=== PATIENT | female | born 1945 | race African-American/Black ===

== ENCOUNTER 2016-07-06 11:54 | Emergency (ER) | payer MEDICARE, OTHER ==
[2016-07-06] MEDS ORDERED: ONDANSETRON 4 MG TAB.RAPDIS PO ONE (12:27)
[2016-07-06] MEDS ORDERED: OXYCODONE-ACETAMINOPHEN 5-325 MG TABLET PO ONE (12:27)
--- NOTE | 2016-07-06 12:27 | ER Document Report ---
ED General - General Time seen by provider: 12:20 Mode of Arrival: Medic Information source: Patient - HPI Onset: This morning - see HPI note <PHAN KUNZ - Last Filed: 07/06/16 12:27> <CATHY IRIZARRY - Last Filed: 07/06/16 15:15> - General Chief Complaint: Knee Injury Stated Complaint: RIGHT KNEE PAIN Notes: Patient is a 71 year old female presenting to the emergency department for a fall. Patient states her knees locked up on her and she fell. Patient complains of some pain to her right knee. Patient was seen at [facility] in 04/2011 for injuring this knee as well. Patient states she was going to get her cane from across the room when this occurred. Patient states that she felt achy this morning. Patient 's PCP is Dr. Maldonado. Patient is oxygen dependent and is on 3 L. Patient states she uses inhalers at home. Patient also has a history of hypertension. ( PHAN KUNZ) - Related Data Allergies/Adverse Reactions: Penicillins Allergy (Verified 05/15/11 22:23) Shellfish * [Shellfish] Allergy (Verified 05/15/11 22:23) Past Medical History - General Information source: Patient - Social History Smoking Status: Unknown if Ever Smoked Family History: None - Past Medical History Cardiac Medical History: Reports: Hx Hypertension Pulmonary Medical History: Reports: Hx Bronchitis, Hx COPD, Hx Pneumonia - Immunizations Hx Diphtheria, Pertussis, Tetanus Vaccination: No <PHAN KUNZ - Last Filed: 07/06/16 12:27> Review of Systems - Review of Systems Constitutional: No symptoms reported EENT: No symptoms reported Cardiovascular: No symptoms reported Respiratory: No symptoms reported Gastrointestinal: No symptoms reported Genitourinary: No symptoms reported Female Genitourinary: No symptoms reported Musculoskeletal: See HPI Skin: No symptoms reported Hematologic/Lymphatic: No symptoms reported Neurological/Psychological: No symptoms reported -: Yes All other systems reviewed and negative <PHAN KUNZ - Last Filed: 07/06/16 12:27> Physical Exam - General General appearance: Appears well, Alert In distress: Mild - HEENT Head: Normocephalic, Atraumatic Eyes: Normal Pupils: PERRL Mucous membranes: Moist - Respiratory Respiratory status: No respiratory distress - patient is on 3 L of 02 Chest status: Nontender Breath sounds: Normal Chest palpation: Normal - Cardiovascular Rhythm: Regular Heart sounds: Normal auscultation Murmur: No - Abdominal Inspection: Normal Distension: No distension Bowel sounds: Normal Tenderness: Nontender Organomegaly: No organomegaly - Back Back: Normal, Tender - tenderness to palpation over the iliac crest spinal musculature - Extremities General upper extremity: Normal inspection, Normal ROM, Normal strength Knee: Tender - tenderness to palpation of the right knee in the lateral joint; when stressing the medial joint there is pain to the lateral joint; when stressing the lateral joint there is not much pain to the lateral joint, Other - arthritic changes in the knees bilaterally - Neurological Neuro grossly intact: Yes Cognition: Normal Orientation: AAOx4 [place] Coma Scale Eye Opening: Spontaneous [place] Coma Scale Verbal: Oriented [place] Coma Scale Motor: Obeys Commands [place] Coma Scale Total: 15 Speech: Normal - Psychological Associated symptoms: Normal affect, Normal mood - Skin Skin Temperature: Warm Skin Moisture: Dry <PHAN KUNZ - Last Filed: 07/06/16 12:27> Course - Diagnostic Test Radiology reviewed: Image reviewed, Reports reviewed - X-rays of the right knee , left hip and lumbar spine do not show fractures but do show osteoarthritic changes. <CATHY IRIZARRY - Last Filed: 07/06/16 15:15> - Vital Signs Vital signs: Temp Pulse Resp BP Pulse Ox 97.9 F 84 18 117/64 94 07/06/16 14:03 07/06/16 14:03 07/06/16 14:03 07/06/16 14:03 07/06/16 14:03 Discharge <PHAN KUNZ - Last Filed: 07/06/16 12:27> <CATHY IRIZARRY - Last Filed: 07/06/16 15:15> - Discharge Clinical Impression: Sprain of collateral ligament of right knee Qualifiers: Encounter type: initial encounter Qualified Code(s): S83.401A - Sprain of unspecified collateral ligament of right knee, initial encounter Osteoarthritis Qualifiers: Osteoarthritis location: knee Osteoarthritis type: primary Laterality: bilateral Qualified Code(s): M17.0 - Bilateral primary osteoarthritis of knee Condition: Stable Disposition: HOME, SELF-CARE Prescriptions: Hydrocodone/Acetaminophen [Hydrocodon-Acetaminophen 5-325] 1 each PO Q4 PRN #15 tablet PRN Reason: For Pain Leg Brace [Knee Support] 1 each MC DAILY #1 each Referrals: LISA MALDONADO MD [Primary Care Provider] - Follow up as needed Scribe Documentation - Scribe Written by Scribe:: Phan Kunz 07/06/16 12:35 acting as scribe for :: Vito <PHAN KUNZ - Last Filed: 07/06/16 12:27>
[2016-07-06 15:40] VITALS: BP 115/62
== END 2016-07-06 15:10 | disposition home or self-care (01) ==
LOC: ER 11:54
DX: S83.401A Sprain of unspecified collateral ligament of right knee, initial encounter (principal); W19.XXXA Unspecified fall, initial encounter; Y93.89 Activity, other specified; M17.0 Bilateral primary osteoarthritis of knee; M47.9 Spondylosis, unspecified; M25.561 Pain in right knee; I10 Essential (primary) hypertension; J44.9 Chronic obstructive pulmonary disease, unspecified; Z99.81 Dependence on supplemental oxygen; Z79.899 Other long term (current) drug therapy; Z88.0 Allergy status to penicillin; Z91.013 Allergy to seafood
CPT/HCPCS: 99283; 73502; 73562; 72110; L1830; A9270 ×2; S0119

== ENCOUNTER → 2016-08-15 | Outpatient (CLI) | payer MEDICARE, OTHER ==
[2016-08-15 11:43] LABS: ABSOLUTE BASOPHILS # (AUTO) 0.1 10^3/uL (0.0-0.2); ABSOLUTE LYMPHOCYTES (AUTO) 1.2 10^3/uL (0.5-4.7); ABSOLUTE MONOCYTES (AUTO) 0.4 10^3/uL (0.1-1.4); ABSOLUTE NEUT (AUTO) 3.9 10^3/uL (1.7-8.2); BASOPHILS % (AUTO) 0.9 % (0-2); EOSINOPHILS % (AUTO) 0.6 % (0-6); HEMATOCRIT 40.3 % (36.0-47.0); HEMOGLOBIN 12.9 g/dL (12.0-15.5); HGB HCT DIFFERENCE -1.6; LYMPHOCYTES % (AUTO) 20.7 % (13-45); MEAN CORPUSCULAR HGB CONC 31.9 g/dL (32.0-36.0); MEAN CORPUSCULAR VOLUME 88 fl (80-97); MONOCYTES % (AUTO) 7.5 % (3-13); RED CELL DISTRIBUTION WIDTH 14.7 % (11.5-14.0); SEGMENTED NEUTROPHILS % (AUTO) 70.3 % (42-78); WHITE BLOOD COUNT 5.6 10^3/uL (4.0-10.5)
[2016-08-15 11:54] LABS: APPEARANCE,URINE CLEAR; BILIRUBIN,URINE NEGATIVE (NEGATIVE); GLUCOSE, URINE NEGATIVE (NEGATIVE); KETONES,URINE NEGATIVE (NEGATIVE); LEUKOCYTE ESTERASE,URINE NEGATIVE (NEGATIVE); NITRITE,URINE NEGATIVE (NEGATIVE); PROTEIN,URINE NEGATIVE (NEGATIVE); UROBILINOGEN,URINE NEGATIVE mg/dL (<2.0)
[2016-08-15 12:06] LABS: ANION GAP 11 (5-19); BLOOD UREA NITROGEN 15 mg/dL (7-20); CALCIUM 9.2 mg/dL (8.4-10.2); CARBON DIOXIDE 32 mmol/L (22-30); CHLORIDE 101 mmol/L (98-107); CREATININE RESULT 0.63 mg/dL (0.52-1.25); GLUCOSE 91 mg/dL (75-110); POTASSIUM 4.5 mmol/L (3.6-5.0)
--- NOTE | 2016-08-15 21:35 | EKG REPORT ---
SEVERITY:- NORMAL ECG - SINUS RHYTHM : Confirmed by: Ashley Saldana 15-Aug-2016 21:33:45
== END ==
LOC: OD 10:12
PROVIDERS: ATTEND Orthopaedic Surgery
DX: Z01.89 Encounter for other specified special examinations (principal); M17.11 Unilateral primary osteoarthritis, right knee
CPT/HCPCS: 36415; 71020; 80048; 81001; 85025; 93005; 93010

== ENCOUNTER 2016-09-12 09:00 | Outpatient (CLI) | payer MEDICARE, OTHER, BC ==
[~2016-09-12 09:00] MED LIST: BUPIVACAINE INJ/PF LIPOSOME/PF 266 MG/20 ML SDV INFIL PRN; CLINDAMYCIN 600 MG/D5W RTU 600 MG/50 ML RTUPB IV PRN; IBUPROFEN 800 MG in NORMAL SALINE 250 ML IV PRN; LANSOPRAZOLE 15 MG TAB.RAP.DR PO PRN; OXYCODONE HCL SR 10 MG TABLET PO PRN; RINGERS SOLUTION,LACTATED 1,000 ML IV PRN; SCOPOLAMINE HYDROBROMIDE 1.5 MG PATCH.TD72 TD PRN; THROMBIN (BOVINE) 5000 UNIT EPITAXIS KIT ONE; THROMBIN (BOVINE) TOPICAL 20000 UNIT VIAL ONE; VANCOMYCIN HCL 1,000 MG in DEXTROSE 5%-WATER 250 ML IV PRN
[2016-09-12] MEDS ORDERED: BUPIVACAINE INJ/PF LIPOSOME/PF 266 MG/20 ML SDV ONE (09:13)
[2016-09-12] MEDS ORDERED: MIDAZOLAM 2 MG/2 ML INJ ONE (09:17)
[2016-09-12] MEDS ORDERED: DEXMEDETOMIDINE INJ 80 MCG/20 ML VIAL IV ONE (09:18)
[2016-09-12] MEDS ORDERED: PROPOFOL INJ 200 MG/20 ML VIAL IV ONE (09:18)
[2016-09-12] MEDS ORDERED: TRANEXAMIC ACID INJ/PF 1,000 MG/10 ML SDV IV ONE (09:18)
[2016-09-12 10:59] VITALS: BP 122/82
== END 2016-09-12 09:01 | disposition home or self-care (01) ==
LOC: UNDOADMIN 09:00 → INOR 09:00 → OROUT 09:00 → UNDODISIN 09:00 → OROUT 09:01 → EDSTATUS 09-26 12:45
PROVIDERS: ATTEND Orthopaedic Surgery
DX: M17.11 Unilateral primary osteoarthritis, right knee (principal)
CPT/HCPCS: A9270 ×2; J7060; J3370; C9290; J1741; J2250; J2704; J3490; J7050

== ENCOUNTER → 2016-09-27 | Outpatient (CLI) | payer MEDICARE, OTHER ==
[2016-09-27 10:12] LABS: HEMATOCRIT 40.8 % (36.0-47.0); HEMOGLOBIN 12.5 g/dL (12.0-15.5); HGB HCT DIFFERENCE -3.3; MEAN CORPUSCULAR HEMOGLOBIN 27.2 pg (27.0-33.4); MEAN CORPUSCULAR HGB CONC 30.7 g/dL (32.0-36.0); MEAN CORPUSCULAR VOLUME 89 fl (80-97); RED BLOOD COUNT 4.61 10^6/uL (3.72-5.28); RED CELL DISTRIBUTION WIDTH 14.9 % (11.5-14.0); WHITE BLOOD COUNT 6.7 10^3/uL (4.0-10.5)
[2016-09-27 10:13] LABS: APPEARANCE,URINE CLEAR; BILIRUBIN,URINE NEGATIVE (NEGATIVE); GLUCOSE, URINE NEGATIVE (NEGATIVE); KETONES,URINE 20 mg/dL (NEGATIVE); LEUKOCYTE ESTERASE,URINE NEGATIVE (NEGATIVE); NITRITE,URINE NEGATIVE (NEGATIVE); PROTEIN,URINE NEGATIVE (NEGATIVE); URINE SPECIFIC GRAVITY 1.017; UROBILINOGEN,URINE NEGATIVE mg/dL (<2.0)
[2016-09-27 10:35] LABS: ANION GAP 11 (5-19); BLOOD UREA NITROGEN 13 mg/dL (7-20); CALCIUM 9.3 mg/dL (8.4-10.2); CARBON DIOXIDE 32 mmol/L (22-30); CHLORIDE 101 mmol/L (98-107); CREATININE RESULT 0.53 mg/dL (0.52-1.25); GLUCOSE 84 mg/dL (75-110); POTASSIUM 4.2 mmol/L (3.6-5.0); SODIUM 144.3 mmol/L (137-145)
== END ==
LOC: OD 09:40 → EDSTATUS 10-05 10:30
PROVIDERS: ATTEND Orthopaedic Surgery
DX: Z01.810 Encounter for preprocedural cardiovascular examination (principal); Z01.812 Encounter for preprocedural laboratory examination; Z01.818 Encounter for other preprocedural examination
CPT/HCPCS: 36415; 80048; 81001; 85027

== ENCOUNTER 2016-10-04 11:42 | Inpatient (IN) | payer MEDICARE, OTHER ==
--- NOTE | 2016-10-04 11:48 | ER Document Report ---
ED General - General Stated Complaint: TROUBLE BREATHING Mode of Arrival: Medic Information source: Patient Notes: 71-year-old presents with hx of copd with complaints of productive cough with sob. pt denies any fevers, found satting 71% on RA. pt given solumendrol and duo nebs TRAVEL OUTSIDE OF THE [place] IN LAST 30 DAYS: No - HPI Onset: Last week Onset/Duration: Sudden, Persistent, Worse Quality of pain: No pain Severity: Moderate Pain Level: Denies Associated symptoms: Productive cough, Shortness of breath Exacerbated by: Walking Relieved by: Denies Similar symptoms previously: No Recently seen / treated by doctor: No - Related Data Allergies/Adverse Reactions: Penicillins Allergy (Verified 08/30/16 12:17) Swelling Shellfish * [Shellfish] Allergy (Verified 08/30/16 12:17) Passed out, Unsure Home Medications: Current Home Medications Albuterol Sulfate [Proair HFA] 2 puff IH Q4 PRN 10/04/16 [History] Amlodipine Besylate/Benazepril [Amlodipine-Benazepril 10-20 mg] 1 cap PO DAILY 10/04/16 [History] Aspirin [Aspirin EC] 81 mg PO DAILY 10/04/16 [History] Past Medical History - Social History Smoking Status: Never Smoker Cigarette use (# per day): No Chew tobacco use (# tins/day): No Smoking Education Provided: No Family History: Reviewed & Not Pertinent - Past Medical History Cardiac Medical History: Reports: Hx Hypertension Denies: Hx Atrial Fibrillation, Hx Congestive Heart Failure, Hx Coronary Artery Disease, Hx Heart Attack, Hx Hypercholesterolemia, Hx Peripheral Vascular Disease, Hx Pulmonary Embolism, Hx Heart Murmur Pulmonary Medical History: Reports: Hx Bronchitis, Hx COPD, Hx Pneumonia Denies: Hx Asthma, Hx Respiratory Failure, Hx Sleep Apnea, Hx Tuberculosis Renal/ Medical History: Denies: Hx Ovarian Cysts, Hx Pelvic Inflammatory Disease Malignancy Medical History: Denies: Hx Breast Cancer, Hx Cervical Cancer, Hx Lung Cancer, Hx Ovarian Cancer Musculoskeltal Medical History: Reports Hx Arthritis, Denies Hx Fibromyalgia, Denies Hx Muscular Dystrophy Traumatic Medical History: Denies: Hx Fractures Past Surgical History: Reports: Hx Tonsillectomy. Denies: Hx Appendectomy, Hx Bowel Surgery, Hx Section, Hx Cholecystectomy, Hx Coronary Artery Bypass Graft, Hx Gastric Bypass Surgery, Hx Herniorrhaphy, Hx Hysterectomy, Hx Mastectomy, Hx Tubal Ligation - Immunizations Hx Diphtheria, Pertussis, Tetanus Vaccination: No Hx Pneumococcal Vaccination: 07/23/08 Review of Systems - Review of Systems Notes: REVIEW OF SYSTEMS: CONSTITUTIONAL : Denies fever, chills, or sweats. Denies recent illness. EENT: Denies eye, ear, throat, or mouth pain or symptoms. Denies nasal or sinus congestion or discharge. Denies throat, tongue, or mouth swelling or difficulty swallowing. CARDIOVASCULAR: Denies chest pain. Denies palpitations or racing or irregular heart beat. Denies ankle edema. RESPIRATORY: admits to sob productive sputum GASTROINTESTINAL: Denies abdominal pain or distention. Denies nausea, vomiting , or diarrhea. Denies blood in vomitus, stools, or per rectum. Denies black, tarry stools. Denies constipation. GENITOURINARY: Denies difficulty urinating, painful urination, burning, frequency, blood in urine, or discharge. FEMALE GENITOURINARY: Denies vaginal bleeding, heavy or abnormal periods, irregular periods. Denies vaginal discharge or odor. MUSCULOSKELETAL: Denies back or neck pain or stiffness. Denies joint pain or swelling. SKIN: Denies rash, lesions or sores. HEMATOLOGIC : Denies easy bruising or bleeding. LYMPHATIC: Denies swollen, enlarged glands. NEUROLOGICAL: Denies confusion or altered mental status. Denies passing out or loss of consciousness. Denies dizziness or lightheadedness. Denies headache. Denies weakness or paralysis or loss of use of either side. Denies problems with gait or speech. Denies sensory loss, numbness, or tingling. Denies seizures. PSYCHIATRIC: Denies anxiety or stress. Denies depression, suicidal ideation, or homicidal ideation. PHYSICAL EXAMINATION: GENERAL: Well-appearing, well-nourished and in moderate acute distress. HEAD: Atraumatic, normocephalic. EYES: Pupils equal round and reactive to light, extraocular movements intact, conjunctiva are normal. ENT: Nares patent, oropharynx clear without exudates. Moist mucous membranes. NECK: Normal range of motion, supple without lymphadenopathy LUNGS: coarse wheezing all throughout HEART: tachycardic ABDOMEN: Soft, nontender, nondistended abdomen. No guarding, no rebound. No masses appreciated. Female : deferred Musculoskeletal: Normal range of motion, no pitting or edema. No cyanosis. NEUROLOGICAL: Cranial nerves grossly intact. Normal speech, normal gait. Normal sensory, motor exams PSYCH: Normal mood, normal affect. SKIN: Warm, Dry, normal turgor, no rashes or lesions noted. ALL OTHER SYSTEMS REVIEWED AND NEGATIVE. Dictation was performed using [employer] voice recognition software Physical Exam - Vital signs Vitals: Pulse Ox 91 L 10/04/16 11:48 Course - Re-evaluation Re-evalutation: 10/04/16 15:52 Patient on arrival is noted to be quite hypoxic even nasal cannula, she was switched to BiPAP and appears to be doing much better, VBG is noted to show hypercapnia chest x-rays consistent with COPD with an infiltrate. Patient admitted for critical care - Vital Signs Vital signs: Temp Pulse Resp BP Pulse Ox 21 H 126/83 H 100 10/04/16 15:01 10/04/16 15:01 10/04/16 15:01 - Laboratory Result Diagrams: 10/04/16 12:10 10/04/16 12:10 Laboratory results interpreted by me: 10/04/16 10/04/16 10/04/16 12:10 12:10 12:10 Hgb 11.8 L MCHC 30.6 L RDW 15.3 H VBG pCO2 VBG HCO3 Sodium 148.2 H Carbon Dioxide 34 H AST 221 H ALT 220 H NT-Pro-B Natriuret Pep 1280 H Albumin 3.4 L Urine Ketones 10/04/16 10/04/16 12:10 12:40 Hgb MCHC RDW VBG pCO2 71.5 H* VBG HCO3 35.1 H Sodium Carbon Dioxide AST ALT NT-Pro-B Natriuret Pep Albumin Urine Ketones TRACE H - Diagnostic Test Radiology reviewed: Image reviewed, Reports reviewed - EKG Interpretation by Me EKG shows normal: Sinus rhythm, [place], Intervals, QRS Complexes Critical Care Note - Critical Care Note Total time excluding time spent on procedures (mins): 31 Comments: minutes of critical care time spent in direct contact evaluating and reevaluating the patient, treating symptoms, reviewing labs and studies and speaking with family and consultants excluding any procedures Discharge - Discharge Clinical Impression: Hypoxemia, Hypercapnia Pneumonia Qualifiers: Pneumonia type: due to unspecified organism Laterality: right Lung location: upper lobe of lung Qualified Code(s): J18.1 - Lobar pneumonia, unspecified organism Admitting Provider: Hospitalist Unit Admitted: [facility]
[2016-10-04 12:32] LABS: ABSOLUTE BASOPHILS # (AUTO) 0.1 10^3/uL (0.0-0.2); ABSOLUTE LYMPHOCYTES (AUTO) 1.4 10^3/uL (0.5-4.7); ABSOLUTE MONOCYTES (AUTO) 0.7 10^3/uL (0.1-1.4); ABSOLUTE NEUT (AUTO) 6.5 10^3/uL (1.7-8.2); BASOPHILS % (AUTO) 0.6 % (0-2); EOSINOPHILS % (AUTO) 0.2 % (0-6); HEMATOCRIT 38.4 % (36.0-47.0); HEMOGLOBIN 11.8 g/dL (12.0-15.5); MEAN CORPUSCULAR HEMOGLOBIN 27.2 pg (27.0-33.4); MEAN CORPUSCULAR HGB CONC 30.6 g/dL (32.0-36.0); MEAN CORPUSCULAR VOLUME 89 fl (80-97); MONOCYTES % (AUTO) 7.9 % (3-13); RED BLOOD COUNT 4.32 10^6/uL (3.72-5.28); RED CELL DISTRIBUTION WIDTH 15.3 % (11.5-14.0); SEGMENTED NEUTROPHILS % (AUTO) 75.3 % (42-78); WHITE BLOOD COUNT 8.6 10^3/uL (4.0-10.5)
[2016-10-04 12:42] LABS: VENOUS BLOOD BASE EXCESS 6.9 mmol/L; VENOUS BLOOD HCO3 35.1 mmol/L (20-32); VENOUS BLOOD PH 7.31 (7.30-7.42)
[2016-10-04 12:44] LABS: VENOUS BLOOD PCO2 71.5 mmHg (35-63)
[2016-10-04 12:52] LABS: ALANINE AMINOTRANSFERASE 220 U/L (9-52); ALBUMIN 3.4 g/dL (3.5-5.0); ALKALINE PHOSPHATASE 104 U/L (38-126); ANION GAP 11 (5-19); ASPARTATE AMINO TRANSFERASE 221 U/L (14-36); BILIRUBIN,DIRECT 0.2 mg/dL (0.0-0.4); BILIRUBIN,TOTAL 0.4 mg/dL (0.2-1.3); BLOOD UREA NITROGEN 20 mg/dL (7-20); CALCIUM 8.5 mg/dL (8.4-10.2); CARBON DIOXIDE 34 mmol/L (22-30); CHLORIDE 103 mmol/L (98-107); CREATINE KINASE 40 U/L (30-135); CREATININE RESULT 0.62 mg/dL (0.52-1.25); GLUCOSE 86 mg/dL (75-110); POTASSIUM 4.2 mmol/L (3.6-5.0); SODIUM 148.2 mmol/L (137-145); TOTAL PROTEIN 7.3 g/dL (6.3-8.2)
[2016-10-04 12:57] LABS: APPEARANCE,URINE SLIGHTLY-CLOUDY; BILIRUBIN,URINE NEGATIVE (NEGATIVE); GLUCOSE, URINE NEGATIVE (NEGATIVE); KETONES,URINE TRACE mg/dL (NEGATIVE); LEUKOCYTE ESTERASE,URINE NEGATIVE (NEGATIVE); NITRITE,URINE NEGATIVE (NEGATIVE); PROTEIN,URINE NEGATIVE (NEGATIVE); URINE SPECIFIC GRAVITY 1.023; UROBILINOGEN,URINE NEGATIVE mg/dL (<2.0)
[2016-10-04 13:04] LABS: CREATINE KINASE MB 1.24 ng/mL (<4.55); TROPONIN I 0.127 ng/mL
--- NOTE | 2016-10-04 13:17 | RADIOLOGY REPORT (SQ) ---
EXAM DESCRIPTION: CHEST SINGLE VIEW COMPLETED DATE/TIME: 10/04/2016 1:07 pm REASON FOR STUDY: sob copd COMPARISON: 08/15/2016 and 05/10/2010. EXAM PARAMETERS: NUMBER OF VIEWS: One view. TECHNIQUE: Single frontal radiographic view of the chest acquired. RADIATION DOSE: NA LIMITATIONS: None. FINDINGS: LUNGS AND PLEURA: Extensive pulmonary fibrosis with interstitial scarring. Somewhat more confluent density in the right upper lobe and possibly left upper lobe. MEDIASTINUM AND HILAR STRUCTURES: No masses. Contour normal. HEART AND VASCULAR STRUCTURES: Heart normal in size. Normal vasculature. BONES: No acute findings. HARDWARE: None in the chest. OTHER: No other significant finding. IMPRESSION: EXTENSIVE CHRONIC PULMONARY FIBROSIS. PROBABLE SUPERIMPOSED INFILTRATE SECONDARY TO PNE UMONIA IN THE RIGHT UPPER LOBE. POSSIBLE SIMILAR FINDING IN THE LEFT UPPER LOBE. TECHNICAL DOCUMENTATION: JOB ID: [id number]
[2016-10-04] MEDS ORDERED: CEFTRIAXONE 1 GM/D5W RTU 50 ML IV ONE (13:20)
[2016-10-04] MEDS ORDERED: VANCOMYCIN HCL 0 MG in DEXTROSE 5%-WATER 250 ML IV NR (14:30)
[2016-10-04] MEDS ORDERED: ALBUTEROL SULFATE 0.083% NEB 2.5 MG/3 ML AMPUL NEB PRN (14:55)
[2016-10-04] MEDS ORDERED: ACETAMINOPHEN 325 MG TABLET PO PRN (14:55)
[2016-10-04] MEDS ORDERED: VANCOMYCIN HCL 750 MG in DEXTROSE 5%-WATER 250 ML IV SCH (16:00)
[2016-10-04] MEDS ORDERED: ENOXAPARIN SODIUM INJ 40 MG/0.4 ML DISP.SYRIN SUBCUT ONE (16:00)
--- NOTE | 2016-10-04 16:01 | PDOC H&P ---
History of Present Illness Admission Date/PCP: 10/04/16 14:01 LISA ZHOU MD Patient complains of: difficulty breathing History of Present Illness: KEDAR CORDERO is a 71 year old female with known history of 3L/min O2 dependent COPD, mod - severe structural lung disease presents to the ED from home with several day history of worsening dyspnea, increasing cough with change in color and character of phlegm, subjective fevers and chills and increasing lethargy. she is found to have hypercapnea and probable RUL pneumonia requiring BiPAP to maintain adequate O2 sats and decrease her WOB and we were asked to admit for further management. she denies chest pain, palpitations, n/v/d, recent travel. she reports sick contact about 2 wks ago. Past Medical History Cardiac Medical History: Reports: Hypertension Denies: Atrial Fibrillation, Congestive Heart Failure, Coronary Artery Disease, Myocardial Infarction, Hyperlipidema, Peripheral Vascular Disease, Pulmonary Embolism, Heart Murmur Pulmonary Medical History: Reports: Bronchitis, Chronic Obstructive Pulmonary Disease (COPD), Pneumonia Denies: Asthma, Respiratory Failure, Sleep Apnea, Tuberculosis Malignancy Medical History: Denies: Breast Cancer, Cervical Cancer, Lung Cancer, Ovarian Cancer Musculoskeltal Medical History: Reports: Arthritis Denies: Fibromyalgia Past Surgical History Past Surgical History: Reports: Tonsillectomy Denies: Amputation, Appendectomy, Section, Cholecystectomy, Coronary Artery Bypass Graft, Gastric Bypass Surgery, Herniorrhaphy, Hysterectomy, Mastectomy, Tubal Ligation Social History Information Source: Patient Smoking Status: Current Every Day Smoker Cigarettes Packs Per Day: 0.5 Frequency of Alcohol Use: None Hx Recreational Drug Use: No Hx Prescription Drug Abuse: No - Advance Directive Resuscitation Status: Full Code Family History Family History: Reviewed & Not Pertinent - to current illness Parental Family History Reviewed: Yes Children Family History Reviewed: Yes Sibling(s) Family History Reviewed.: Yes Medication/Allergy Home Medications: Albuterol Sulfate [Proventil 2 mg/5 ml Syrup] 2 mg PO QPM PRN 08/31/16 Amlodipine Besylate/Benazepril [Amlodipine-Benazepril 10-20 mg] 1 each PO QAM Ascorbic Acid [Vitamin C] 1,000 mg PO DAILY 08/31/16 Aspirin [Aspirin EC] 81 mg PO DAILY 08/31/16 Aspirin/Acetaminophen/Caffeine [Excedrin Extra Strength Caplet] 1 tab-cap PO DAILY PRN 08/31/16 Budesonide/Formoterol Fumarate [Symbicort Hfa 160-4.5 Mcg Inhaler 6 gm] 1 puff IH Q12 08/31/16 Calcium Carbonate [Calcium] 1,200 mg PO DAILY 08/31/16 Cod Liver Oil 118 ml PO DAILY 08/31/16 Cyanocobalamin (Vitamin B-12) [Vitamin B-12] 2,000 - 2,500 mcg SL DAILY Ginkgo Biloba 120 mg PO DAILY 08/31/16 Ibuprofen [Advil] 200 mg PO DAILY PRN 08/31/16 Magnesium 250 mg PO DAILY 08/31/16 Multivitamin [Multivitamins] 1 each PO DAILY 08/31/16 Tiotropium [place] [Spiriva Respimat] 4 gm IH DAILY 08/31/16 Ubidecarenone/Vitamin E Mixed [Coq10 Sg 100 Softgel] 1 each PO DAILY 08/31/16 Vitamin E (Dl, Acetate) [Vitamin E] 100 unit PO DAILY 08/31/16 Allergies/Adverse Reactions: Penicillins Allergy (Verified 08/30/16 12:17) Swelling Shellfish * [Shellfish] Allergy (Verified 08/30/16 12:17) Passed out, Unsure Review of Systems All systems: reviewed and no additional remarkable complaints except as stated Constitutional: PRESENT: chills, fever(s). ABSENT: headache(s), weight gain, weight loss Eyes: ABSENT: visual disturbances Ears: ABSENT: hearing changes Cardiovascular: PRESENT: dyspnea on exertion. ABSENT: chest pain, edema, orthropnea, palpitations Respiratory: PRESENT: cough, sputum. ABSENT: hemoptysis Gastrointestinal: ABSENT: abdominal pain, constipation, diarrhea, hematemesis, hematochezia, nausea, vomiting Genitourinary: ABSENT: dysuria, hematuria Musculoskeletal: ABSENT: joint swelling Integumentary: ABSENT: rash, wounds Neurological: ABSENT: abnormal gait, abnormal speech, confusion, dizziness, focal weakness, syncope Psychiatric: ABSENT: anxiety, depression, homidical ideation, suicidal ideation Endocrine: ABSENT: cold intolerance, heat intolerance, polydipsia, polyuria Hematologic/Lymphatic: ABSENT: easy bleeding, easy bruising Physical Exam Vital Signs: Temp Pulse Resp BP Pulse Ox 21 H 126/83 H 100 10/04/16 15:01 10/04/16 15:01 10/04/16 15:01 Intake & Output 10/03/16 10/04/16 10/05/16 06:59 06:59 06:59 Weight 68.946 kg General appearance: PRESENT: no acute distress, cooperative, well-developed, well-nourished Head exam: PRESENT: atraumatic, normocephalic Eye exam: PRESENT: EOMI. ABSENT: conjunctival injection, scleral icterus Mouth exam: PRESENT: moist, neck supple Neck exam: PRESENT: full ROM. ABSENT: tracheal deviation Respiratory exam: PRESENT: accessory muscle use, rales - right sided. ABSENT: stridor, wheezes Cardiovascular exam: PRESENT: RRR. ABSENT: systolic murmur, tachycardia Pulses: PRESENT: normal radial pulses, normal dorsalis pedis pul GI/Abdominal exam: PRESENT: normal bowel sounds, soft. ABSENT: tenderness Extremities exam: PRESENT: pedal edema - trace. ABSENT: calf tenderness Neurological exam: PRESENT: alert, awake, oriented to person, oriented to place , oriented to time Psychiatric exam: PRESENT: appropriate affect, normal mood Skin exam: PRESENT: warm. ABSENT: erythema Results Laboratory Results: 10/04/16 12:10 10/04/16 12:10 MCV 89 fl (80-97) 10/04/16 12:10 MCH 27.2 pg (27.0-33.4) 10/04/16 12:10 MCHC 30.6 g/dL (32.0-36.0) L 10/04/16 12:10 RDW 15.3 % (11.5-14.0) H 10/04/16 12:10 Seg Neutrophils % 75.3 % (42-78) 10/04/16 12:10 Lymphocytes % 16.0 % (13-45) 10/04/16 12:10 Monocytes % 7.9 % (3-13) 10/04/16 12:10 Eosinophils % 0.2 % (0-6) 10/04/16 12:10 Basophils % 0.6 % (0-2) 10/04/16 12:10 Absolute Neutrophils 6.5 10^3/uL (1.7-8.2) 10/04/16 12:10 Absolute Lymphocytes 1.4 10^3/uL (0.5-4.7) 10/04/16 12:10 Absolute Monocytes 0.7 10^3/uL (0.1-1.4) 10/04/16 12:10 Absolute Eosinophils 0.0 10^3/uL (0.0-0.6) 10/04/16 12:10 Absolute Basophils 0.1 10^3/uL (0.0-0.2) 10/04/16 12:10 VBG pH 7.31 (7.30-7.42) 10/04/16 12:10 VBG pCO2 71.5 mmHg (35-63) H* 10/04/16 12:10 VBG HCO3 35.1 mmol/L (20-32) H 10/04/16 12:10 VBG Base Excess 6.9 mmol/L 10/04/16 12:10 Chloride 103 mmol/L (98-107) 10/04/16 12:10 Carbon Dioxide 34 mmol/L (22-30) H 10/04/16 12:10 Anion Gap 11 (5-19) 10/04/16 12:10 Est GFR ( Amer) > 60 (>60) 10/04/16 12:10 Est GFR (Non-Af Amer) > 60 (>60) 10/04/16 12:10 Glucose 86 mg/dL (75-110) 10/04/16 12:10 Calcium 8.5 mg/dL (8.4-10.2) 10/04/16 12:10 Total Bilirubin 0.4 mg/dL (0.2-1.3) 10/04/16 12:10 AST 221 U/L (14-36) H 10/04/16 12:10 ALT 220 U/L (9-52) H 10/04/16 12:10 Alkaline Phosphatase 104 U/L (38-126) 10/04/16 12:10 Total Protein 7.3 g/dL (6.3-8.2) 10/04/16 12:10 Albumin 3.4 g/dL (3.5-5.0) L 10/04/16 12:10 Urine Color YELLOW 10/04/16 12:40 Urine Appearance SLIGHTLY-CLOUDY 10/04/16 12:40 Urine pH 5.0 (5.0-9.0) 10/04/16 12:40 Ur Specific [place] 1.023 10/04/16 12:40 Urine Protein NEGATIVE mg/dL (NEGATIVE) 10/04/16 12:40 Urine Glucose (UA) NEGATIVE mg/dL (NEGATIVE) 10/04/16 12:40 Urine Ketones TRACE mg/dL (NEGATIVE) H 10/04/16 12:40 Urine Blood NEGATIVE (NEGATIVE) 10/04/16 12:40 Urine Nitrite NEGATIVE (NEGATIVE) 10/04/16 12:40 Ur Leukocyte Esterase NEGATIVE (NEGATIVE) 10/04/16 12:40 Urine WBC (Auto) 0 /HPF 10/04/16 12:40 Urine RBC (Auto) 0 /HPF 10/04/16 12:40 10/04/16 10/04/16 12:10 12:10 Creatine Kinase 40 CK-MB (CK-2) 1.24 Troponin I 0.127 NT-Pro-B Natriuret Pep 1280 H Impressions: Chest X-Ray 10/04/16 11:48 IMPRESSION: EXTENSIVE CHRONIC PULMONARY FIBROSIS. PROBABLE SUPERIMPOSED INFILTRATE SECONDARY TO PNEUMONIA IN THE RIGHT UPPER LOBE. POSSIBLE SIMILAR FINDING IN THE LEFT UPPER LOBE. Status: Image reviewed by mt - ct chest last year reviewed and shows extensive emphysematous changes and scarring Assessment & Plan - Diagnosis (1) Acute on chronic respiratory failure with hypoxia and hypercapnia Is this a current diagnosis for this admission?: YesPlan: worse; admit to IMCU due to risk for decompensation and respiratory compromise; continue BiPAP prn and home O2 with aggressive pulmonary toilet. (2) Pneumonia Qualifiers: Pneumonia type: due to unspecified organism Laterality: right Lung location: upper lobe of lung Qualified Code(s): J18.1 - Lobar pneumonia, unspecified organism Is this a current diagnosis for this admission?: YesPlan: new; given severe fixed lung disease she is at grave risk for GN orgs including Pseudomonas and given her history of exposure to medical community she is at risk for nosocomial pathogens including MRSA. start broad spectrum abx to cover. (3) HTN (hypertension) Qualifiers: Hypertension type: essential hypertension Qualified Code(s): I10 - Essential (primary) hypertension Is this a current diagnosis for this admission?: YesPlan: continue home regimen. - Time Time Spent: Greater than 70 Minutes Medications reviewed and adjusted accordingly: Yes - Inpatient Certification Based on my medical assessment, after consideration of the patient's comorbidities, presenting symptoms, or acuity I expect that the services needed warrant INPATIENT care.: Yes I certify that my determination is in accordance with my understanding of Medicare's requirements for reasonable and necessary INPATIENT services [42 CFR 412.3e].: Yes Medical Necessity: Significant Comorbidiites Make Outpatient Treatment Too Risky , Need Close Monitoring Due to Risk of Patient Decompensation, Need For Continuous Telemetry Monitoring, Need for IV Antibiotics, Risk of Complication if Not Cared For in Hospital
[2016-10-04] MEDS ORDERED: CEFEPIME 2 GM/D5W RTU 2 GM/50 ML RTUPB IV SCH (18:00)
[2016-10-04] MEDS: LEVOFLOXACIN 500 MG/D5W RTU 500 MG/100 ML RTUPB IV SCH (18:56)
[2016-10-04] MEDS: IPRATROPIUM/ALBUTEROL 0.5-2.5 MG/3 ML AMPUL NEB SCH (19:58)
[2016-10-04] MEDS ORDERED: PHARMACY COMMUNICATION ORDER MC SCH (20:45)
[2016-10-04] MEDS ORDERED: FAMOTIDINE INJ/PF 20 MG/2 ML SDV IV SCH (22:00)
[2016-10-04] MEDS ORDERED: CEFEPIME 2 GM/D5W RTU 50 ML IV SCH (22:00)
[2016-10-04] MEDS ORDERED: AZTREONAM INJ 1 GM VIAL IV SCH (22:00)
--- NOTE | 2016-10-04 22:38 | EKG REPORT ---
SEVERITY:- BORDERLINE ECG - SINUS RHYTHM BORDERLINE R WAVE PROGRESSION, ANTERIOR LEADS BORDERLINE T ABNORMALITIES, ANTERIOR LEADS : Confirmed by: Ashley Saldana 04-Oct-2016 22:37:11
[2016-10-04] MEDS: FAMOTIDINE INJ/PF 20 MG/2 ML SDV IV SCH (22:46)
[2016-10-04] MEDS: GUAIFENESIN 600 MG TABLET.SA PO SCH (22:46)
[2016-10-04] MEDS: VANCOMYCIN HCL 750 MG in DEXTROSE 5%-WATER 250 ML IV SCH (22:47)
[2016-10-04] MEDS ORDERED: AZTREONAM INJ 1 GM VIAL ONE (23:43)
[2016-10-05] MEDS ORDERED: AZTREONAM INJ 1 GM VIAL ONE (01:37)
[2016-10-05 04:53] LABS: ABSOLUTE LYMPHOCYTES (AUTO) 0.8 10^3/uL (0.5-4.7); ABSOLUTE MONOCYTES (AUTO) 0.5 10^3/uL (0.1-1.4); ABSOLUTE NEUT (AUTO) 5.6 10^3/uL (1.7-8.2); BASOPHILS % (AUTO) 0.4 % (0-2); HEMATOCRIT 34.3 % (36.0-47.0); HEMOGLOBIN 10.6 g/dL (12.0-15.5); HGB HCT DIFFERENCE -2.5; LYMPHOCYTES % (AUTO) 12.1 % (13-45); MEAN CORPUSCULAR HEMOGLOBIN 27.5 pg (27.0-33.4); MEAN CORPUSCULAR HGB CONC 30.9 g/dL (32.0-36.0); MEAN CORPUSCULAR VOLUME 89 fl (80-97); MONOCYTES % (AUTO) 7.5 % (3-13); RED BLOOD COUNT 3.85 10^6/uL (3.72-5.28); WHITE BLOOD COUNT 6.9 10^3/uL (4.0-10.5)
[2016-10-05 05:18] LABS: ANION GAP 7 (5-19); BLOOD UREA NITROGEN 24 mg/dL (7-20); CALCIUM 8.2 mg/dL (8.4-10.2); CARBON DIOXIDE 31 mmol/L (22-30); CHLORIDE 102 mmol/L (98-107); CREATININE RESULT 0.58 mg/dL (0.52-1.25); GLUCOSE 80 mg/dL (75-110); POTASSIUM 4.8 mmol/L (3.6-5.0)
[2016-10-05] MEDS: IPRATROPIUM/ALBUTEROL 0.5-2.5 MG/3 ML AMPUL NEB SCH ×3 (07:59→19:58)
[2016-10-05] MEDS ORDERED: OXYCODONE HCL IR 5 MG TABLET PO PRN (08:34)
[2016-10-05] MEDS ORDERED: MORPHINE SULFATE 10 MG/ML INJ IV PRN (08:35)
[2016-10-05] MEDS: ENOXAPARIN SODIUM INJ 40 MG/0.4 ML DISP.SYRIN SUBCUT SCH (09:34)
[2016-10-05] MEDS: FAMOTIDINE INJ/PF 20 MG/2 ML SDV IV SCH ×2 (09:34→22:01)
[2016-10-05] MEDS: GUAIFENESIN 600 MG TABLET.SA PO SCH ×2 (09:35→22:01)
[2016-10-05] MEDS: AZTREONAM 1 GM in DEXTROSE 5%-WATER 50 ML IV SCH ×2 (09:35→18:00)
[2016-10-05] MEDS: ASPIRIN 81 MG TABLET, ENT COATED PO SCH (09:41)
[2016-10-05] MEDS ORDERED: AZTREONAM INJ 1 GM VIAL IV SCH (10:00)
--- NOTE | 2016-10-05 10:51 | PDOC PROGRESS REPORT ---
Subjective Progress Note for:: 10/05/16 Subjective:: reason for visit: f/u pneumonia, hypoxia hospital course: KEDAR CORDERO is a 71 year old female with known history of 3L/min O2 dependent COPD, mod - severe structural lung disease presents to the ED from home with several day history of worsening dyspnea, increasing cough with change in color and character of phlegm, subjective fevers and chills and increasing lethargy. she is found to have hypercapnea and probable RUL pneumonia requiring BiPAP to maintain adequate O2 sats and decrease her WOB and we were asked to admit for further management. she denies chest pain, palpitations, n/v/d, recent travel. she reports sick contact about 2 wks ago. admitted to [facility] due to risk for decompensation and respiratory compromise for BiPAP prn and home O2 with aggressive pulmonary toilet and broad spectrum IV abx. she has shown good improvement overall during the night but still desats without the BiPAP and in spite of O2 via NC. she is feeling stronger and states her "cough is breaking up", she denies chest pain or palpitations, no n/v /d, fevers or chills. ROS: all systems reviewed, see HPI, remaining systems are negative Physical Exam Vital Signs: Temp Pulse Resp BP Pulse Ox 97.5 F 75 25 H 105/62 97 10/05/16 07:22 10/05/16 07:59 10/05/16 07:59 10/05/16 07:22 10/05/16 07:59 Pulse Oximeter Continuous Start: 10/04/16 14: 57 Freq: RTQ4 Status: Active Document 10/05/16 07:59 [facility] (Rec: 10/05/16 08:17 [facility] [email or web address]) Pulse Oximetry Assessment Oxygen Saturation (92-100) 97 Oxygen Delivery Method Bi-pap Equipment Usage Equipment in Use Continuous SpO2 Machine # 7 Intake & Output 10/04/16 10/05/16 10/06/16 06:59 06:59 06:59 Intake Total 260 310 Output Total 480 Balance 260 -170 Weight 71.7 kg General appearance: PRESENT: no acute distress, well-developed, well-nourished Head exam: PRESENT: atraumatic, normocephalic Eye exam: PRESENT: EOMI. ABSENT: conjunctival injection, scleral icterus Mouth exam: PRESENT: dry mucosa, neck supple Neck exam: PRESENT: full ROM. ABSENT: tracheal deviation Respiratory exam: PRESENT: crackles - coarse BSs R>L, tachypnea. ABSENT: accessory muscle use, rhonchi, wheezes Cardiovascular exam: PRESENT: RRR. ABSENT: systolic murmur Pulses: PRESENT: normal radial pulses, normal dorsalis pedis pul GI/Abdominal exam: PRESENT: normal bowel sounds, soft. ABSENT: tenderness Extremities exam: PRESENT: pedal edema - trace at the ankles. ABSENT: calf tenderness Neurological exam: PRESENT: alert, awake, oriented to person, oriented to place , oriented to time, oriented to situation Psychiatric exam: PRESENT: appropriate affect, normal mood Focused psych exam: ABSENT: pressured speech, restlessness Skin exam: PRESENT: warm. ABSENT: rash Results Laboratory Results: 10/05/16 03:59 10/05/16 03:59 10/05/16 10/05/16 03:59 03:59 WBC 6.9 RBC 3.85 Hgb 10.6 L Hct 34.3 L MCV 89 MCH 27.5 MCHC 30.9 L RDW 15.0 H Plt Count 129 L Seg Neutrophils % 80.0 H Lymphocytes % 12.1 L Monocytes % 7.5 Eosinophils % 0.0 Basophils % 0.4 Absolute Neutrophils 5.6 Absolute Lymphocytes 0.8 Absolute Monocytes 0.5 Absolute Eosinophils 0.0 Absolute Basophils 0.0 Sodium 140.0 Potassium 4.8 Chloride 102 Carbon Dioxide 31 H Anion Gap 7 BUN 24 H Creatinine 0.58 Est GFR ( Amer) > 60 Est GFR (Non-Af Amer) > 60 Glucose 80 Calcium 8.2 L Assessment & Plan - Diagnosis (1) Acute on chronic respiratory failure with hypoxia and hypercapnia Is this a current diagnosis for this admission?: YesPlan: minimally impoved, certainly not back to baseline; continue intermittent BiPAP and attempts to wean off through the day, increase activity to bedside chair as her condition will allow; continue broad spectrum abx, levaquin should cover possibility of Psa, ok to switch to aztreonam due to her allergies; continue nebs (2) Pneumonia Qualifiers: Pneumonia type: due to unspecified organism Laterality: right Lung location: upper lobe of lung Qualified Code(s): J18.1 - Lobar pneumonia, unspecified organism Is this a current diagnosis for this admission?: YesPlan: stable; as above (3) HTN (hypertension) Qualifiers: Hypertension type: essential hypertension Qualified Code(s): I10 - Essential (primary) hypertension Is this a current diagnosis for this admission?: YesPlan: well controlled (4) Idiopathic pulmonary fibrosis Is this a current diagnosis for this admission?: YesPlan: stable; severity of the scarring raises her risk for nosocomial and GN organisms accounting for need for aggressive abx - Time Time Spent with patient: 35 or more minutes Medications reviewed and adjusted accordingly: Yes Anticipated discharge: Home with Homehealth Within: within 72 hours
[2016-10-05 12:13] LABS: PROTHROMBIN TIME 14.3 SEC (11.4-15.4)
[2016-10-05] MEDS: VANCOMYCIN HCL 750 MG in DEXTROSE 5%-WATER 250 ML IV SCH ×2 (13:01→22:02)
--- NOTE | 2016-10-05 13:54 | RADIOLOGY REPORT (SQ) ---
EXAM DESCRIPTION: PICC INSERTION; U/S GUIDE FOR VASCULAR ACCESS COMPLETED DATE/TIME: 10/05/2016 1:42 pm REASON FOR STUDY: IV abx; IV ACCESS COMPARISON: None. FLUOROSCOPY TIME: None, fluoroscopy unit down. 4 C arm images saved to PACS. TECHNIQUE: Fluoroscopic and ultrasound guided PICC placement. LIMITATIONS: None. PROCEDURE: After written consent and assessment were obtained, the patient was brought into the fluo roscopy room and place supine on the table. Ultrasound was used on the patient's left arm for PICC a ccess. The left arm was prepped and draped in a sterile fashion along with the ultrasound probe. The entry site was anesthetized with 1% lidocaine. A 21 gauge 7 cm needle was advanced through the skin a nd into the basilic vein under live ultrasound guidance. An ultrasound image was saved to PACS confi rming access site. A .018 guide wire was then inserted through the needle and into the venous system . The needle was the removed and an 11 blade scalpel was used to make a 1cm skin incision. A 5 fr pe el-away sheath was advanced over the wire and into the venous system. A measurement was then made usi ng the existing wire and live fluoroscopic guidance. The wire was then removed and the trimmed. The P ICC was advanced through the peel-away sheath and into the venous system. The peel-away sheath was re moved and the catheter was adhered to the patients arm with a stat lock. The catheter was then aspira marcus and flushed and a sterile bandage was placed over the access site. Spot images were saved to PAC S confirming the catheter tip within the cavoatrial junction. IMPRESSION: Placement of left basilic vein PICC. COMMENT: Patient medication list reviewed: Yes- Quality ID# [id number]:Eligible professional attests to doc umenting in the medical record they obtained, updated, or reviewed the patient's current medications. . Quality ID 145: Final reports for procedures using fluoroscopy that document radiation exposure eriberto jefferson, or exposure time and number of fluorographic images (if radiation exposure indices are not avail able) Quality ID #76: The patient was prepped and draped using maximum sterile barrier technique including cap, mask, sterile gown, sterile gloves, a large sterile sheet, hand hygiene, and 2% Chlorhexidine fo r cutaneous antisepsis. When ultrasound is used, sterile ultrasound techniques are followed requiring sterile gel and sterile probes. TECHNICAL DOCUMENTATION: JOB ID: [id number] [employer]- All Rights Reserved
[2016-10-05] MEDS: ACETAMINOPHEN 325 MG TABLET PO PRN (16:05)
[2016-10-05] MEDS: LEVOFLOXACIN 500 MG/D5W RTU 500 MG/100 ML RTUPB IV SCH (18:01)
[2016-10-05] MEDS: NORMAL SALINE 10 ML SDV (SCHEDULED) IV SCH (22:01)
[2016-10-06] MEDS: AZTREONAM 1 GM in DEXTROSE 5%-WATER 50 ML IV SCH ×3 (05:02→17:45)
[2016-10-06] MEDS: IPRATROPIUM/ALBUTEROL 0.5-2.5 MG/3 ML AMPUL NEB SCH ×3 (07:31→20:40)
--- NOTE | 2016-10-06 09:21 | Physician Advisory Note ---
Physician Advisor ProgressNote .: Pursuant to the plan [facility], I have reviewed the medical record for this patient. Physician Advisor Statement: Please consider documentin. "Acute hypernatremia on adm, suspect due to " - intravascular volume depletion? 2. "RUL PNA, may be gram-negative given underlying pulm fibrosis" - yesterday 's note hinted at this in the text under "pulm fibrosis" dx, but coders may need it that much more explicit in future notes. Thanks! CL
[2016-10-06] MEDS: FAMOTIDINE INJ/PF 20 MG/2 ML SDV IV SCH (09:38)
[2016-10-06] MEDS: ASPIRIN 81 MG TABLET, ENT COATED PO SCH (09:38)
[2016-10-06] MEDS: GUAIFENESIN 600 MG TABLET.SA PO SCH (09:39)
[2016-10-06] MEDS: NORMAL SALINE 10 ML SDV (SCHEDULED) IV SCH ×2 (09:40→22:24)
[2016-10-06] MEDS: ENOXAPARIN SODIUM INJ 40 MG/0.4 ML DISP.SYRIN SUBCUT SCH (09:40)
--- NOTE | 2016-10-06 10:04 | PDOC PROGRESS REPORT ---
Subjective Progress Note for:: 10/06/16 Subjective:: reason for visit: f/u pneumonia, hypoxia hospital course: KEDAR CORDERO is a 71 year old female with known history of 3L/min O2 dependent COPD, mod - severe structural lung disease presents to the ED from home with several day history of worsening dyspnea, increasing cough with change in color and character of phlegm, subjective fevers and chills and increasing lethargy. she is found to have hypercapnea and probable RUL pneumonia requiring BiPAP to maintain adequate O2 sats and decrease her WOB and we were asked to admit for further management. she denies chest pain, palpitations, n/v/d, recent travel. she reports sick contact about 2 wks ago. admitted to [facility] due to risk for decompensation and respiratory compromise for BiPAP prn and home O2 with aggressive pulmonary toilet and broad spectrum IV abx. she continues to show steady, good improvement overall, able to spend more time off the BiPAP. she is feeling stronger and states her "cough is breaking up" and more productive now, she denies chest pain or palpitations, no n/v/d, fevers or chills. sputum culx shows GNR, final is still pending ROS: all systems reviewed, see HPI, remaining systems are negative Physical Exam Vital Signs: Temp Pulse Resp BP Pulse Ox 98.1 F 90 22 H 136/71 H 91 L 10/06/16 07:00 10/06/16 07:31 10/06/16 07:31 10/06/16 07:00 10/06/16 07:31 Pulse Oximeter Continuous Start: 10/04/16 14: 57 Freq: RTQ4 Status: Active Document 10/06/16 07:31 LDA (Rec: 10/06/16 08:58 LDA [email or web address]) Pulse Oximetry Assessment Oxygen Saturation (92-100) 91 Oxygen Flow Rate (L/min) 12 Oxygen Delivery Method Non-Rebreather Fraction of Inspired Oxygen (FIO2) 100 Equipment Usage Equipment in Use Continuous SpO2 Machine # 7 Intake & Output 10/05/16 10/06/16 10/07/16 06:59 06:59 06:59 Intake Total 260 1060 Output Total 830 Balance 260 230 Weight 71.7 kg 70.4 kg General appearance: PRESENT: no acute distress, well-developed, well-nourished Head exam: PRESENT: atraumatic, normocephalic Eye exam: ABSENT: conjunctival injection, scleral icterus Mouth exam: PRESENT: moist, neck supple Neck exam: PRESENT: full ROM. ABSENT: tenderness Respiratory exam: PRESENT: accessory muscle use, rales - bases. ABSENT: rhonchi , wheezes Cardiovascular exam: PRESENT: RRR. ABSENT: tachycardia Pulses: PRESENT: normal radial pulses, normal dorsalis pedis pul GI/Abdominal exam: PRESENT: normal bowel sounds, soft. ABSENT: tenderness Extremities exam: PRESENT: pedal edema - trace. ABSENT: calf tenderness Musculoskeletal exam: PRESENT: full ROM, tenderness - Rt knee on palpation with small joint effusion noted there Neurological exam: PRESENT: alert, awake, oriented to person, oriented to place , oriented to time Psychiatric exam: PRESENT: appropriate affect, normal mood Skin exam: PRESENT: warm. ABSENT: rash Results Laboratory Results: 10/05/16 03:59 10/05/16 03:59 Impressions: Chest X-Ray 10/04/16 11:48 IMPRESSION: EXTENSIVE CHRONIC PULMONARY FIBROSIS. PROBABLE SUPERIMPOSED INFILTRATE SECONDARY TO PNEUMONIA IN THE RIGHT UPPER LOBE. POSSIBLE SIMILAR FINDING IN THE LEFT UPPER LOBE. Interventional Vascular Procedure 10/05/16 00:00 IMPRESSION: Placement of left basilic vein PICC. PICC Line Insertion 10/05/16 00:00 IMPRESSION: Placement of left basilic vein PICC. Assessment & Plan - Diagnosis (1) Acute on chronic respiratory failure with hypoxia and hypercapnia Is this a current diagnosis for this admission?: YesPlan: slowly impoving, not back to baseline; continue intermittent BiPAP and attempts to wean off through the day, increase activity to bedside chair as her condition will allow; continue broad spectrum abx, levaquin should cover possibility of Psa, ok to switch to aztreonam due to her allergies; continue nebs f/u final sputum culture and narrow abx spectrum accordingly (2) Pneumonia Qualifiers: Pneumonia type: due to unspecified organism Laterality: right Lung location: upper lobe of lung Qualified Code(s): J18.1 - Lobar pneumonia, unspecified organism Is this a current diagnosis for this admission?: YesPlan: stable; as above (3) HTN (hypertension) Qualifiers: Hypertension type: essential hypertension Qualified Code(s): I10 - Essential (primary) hypertension Is this a current diagnosis for this admission?: Yes (4) Idiopathic pulmonary fibrosis Is this a current diagnosis for this admission?: Yes - Time Time Spent with patient: 25-34 minutes Medications reviewed and adjusted accordingly: Yes
[2016-10-06 10:44] LABS: CREATININE RESULT 0.61 mg/dL (0.52-1.25)
[2016-10-06] MEDS: VANCOMYCIN HCL 750 MG in DEXTROSE 5%-WATER 250 ML IV SCH ×2 (11:06→22:24)
[2016-10-06] MEDS: ACETAMINOPHEN 325 MG TABLET PO PRN (11:56)
[2016-10-06] MEDS: SODIUM CHLORIDE NASAL SPRAY 44 ML NASL SCH ×3 (13:15→22:49)
[2016-10-06] MEDS: LEVOFLOXACIN 500 MG/D5W RTU 500 MG/100 ML RTUPB IV SCH (17:54)
[2016-10-06] MEDS: FAMOTIDINE 20 MG TABLET PO SCH (22:23)
[2016-10-06] MEDS: GUAIFENESIN SYRP 200 MG/10 ML UDC PO PRN (22:24)
[2016-10-07] MEDS: AZTREONAM 1 GM in DEXTROSE 5%-WATER 50 ML IV SCH (02:58)
[2016-10-07] MEDS: GUAIFENESIN SYRP 200 MG/10 ML UDC PO PRN (04:03)
[2016-10-07] MEDS: IPRATROPIUM/ALBUTEROL 0.5-2.5 MG/3 ML AMPUL NEB SCH ×3 (07:34→19:43)
[2016-10-07] MEDS: ASPIRIN 81 MG TABLET, ENT COATED PO SCH (09:31)
[2016-10-07] MEDS: FAMOTIDINE 20 MG TABLET PO SCH ×2 (09:32→21:58)
[2016-10-07] MEDS: METHYLPREDNISOLONE INJ 40 MG/1 ML SDV IV SCH ×2 (09:32→21:57)
[2016-10-07] MEDS: ENOXAPARIN SODIUM INJ 40 MG/0.4 ML DISP.SYRIN SUBCUT SCH (09:33)
[2016-10-07] MEDS: SODIUM CHLORIDE NASAL SPRAY 44 ML NASL SCH ×4 (09:36→21:57)
[2016-10-07] MEDS: NORMAL SALINE 10 ML SDV (SCHEDULED) IV SCH ×2 (09:36→21:58)
--- NOTE | 2016-10-07 10:25 | PDOC PROGRESS REPORT ---
Subjective Progress Note for:: 10/07/16 Subjective:: reason for visit: f/u pneumonia, hypoxia hospital course: KEDAR CORDERO is a 71 year old female with known history of 3L/min O2 dependent COPD, mod - severe structural lung disease presents to the ED from home with several day history of worsening dyspnea, increasing cough with change in color and character of phlegm, subjective fevers and chills and increasing lethargy. she is found to have hypercapnea and probable RUL pneumonia requiring BiPAP to maintain adequate O2 sats and decrease her WOB and we were asked to admit for further management. she denies chest pain, palpitations, n/v/d, recent travel. she reports sick contact about 2 wks ago. admitted to [facility] due to risk for decompensation and respiratory compromise for BiPAP prn and home O2 with aggressive pulmonary toilet and broad spectrum IV abx. she continues to show steady, slow improvement overall, trying to spend more time off the BiPAP and more time in bedside chair. Her right knee continues to bother her and affects her breathing when the pain intensifies, described as sharp, stabbing, constant pain radiating into hip and thigh with ascted breathlessness (takes my breath away), relieved with rest and worse with ambulation or certain movements. sputum culx shows pansens Psa. ROS: she is about the same, seems to have plateaued, cough productive, she denies chest pain or palpitations, no n/v/d, fevers or chills. all systems reviewed, see HPI, remaining systems are negative Physical Exam Vital Signs: Temp Pulse Resp BP Pulse Ox 98.2 F 97 19 126/79 H 94 10/07/16 07:35 10/07/16 07:35 10/07/16 07:35 10/07/16 07:35 10/07/16 07:35 Pulse Oximeter Continuous Start: 10/04/16 14: 57 Freq: RTQ4 Status: Active Document 10/07/16 07:34 LDA (Rec: 10/07/16 07:40 LDA [email or web address]) Pulse Oximetry Assessment Oxygen Saturation (92-100) 98 Oxygen Delivery Method Bi-pap Fraction of Inspired Oxygen (FIO2) 60 Equipment Usage Equipment in Use Continuous SpO2 Machine # 7 Intake & Output 10/06/16 10/07/16 10/08/16 06:59 06:59 06:59 Intake Total 1060 1280 Output Total 830 500 Balance 230 780 Weight 70.4 kg 69.5 kg General appearance: PRESENT: no acute distress, well-developed, well-nourished Head exam: PRESENT: atraumatic, normocephalic Eye exam: ABSENT: conjunctival injection, scleral icterus Neck exam: PRESENT: full ROM. ABSENT: tracheal deviation Respiratory exam: PRESENT: rales. ABSENT: accessory muscle use, rhonchi, wheezes Cardiovascular exam: PRESENT: RRR. ABSENT: systolic murmur Pulses: PRESENT: normal radial pulses Vascular exam: PRESENT: normal capillary refill GI/Abdominal exam: PRESENT: normal bowel sounds, soft. ABSENT: tenderness Musculoskeletal exam: PRESENT: tenderness. ABSENT: full ROM - limited in right knee due to pain Neurological exam: PRESENT: alert, awake, oriented to person, oriented to place , oriented to time Psychiatric exam: PRESENT: appropriate affect, normal mood Skin exam: PRESENT: warm. ABSENT: dry Results Laboratory Results: 10/05/16 03:59 10/06/16 10:00 10/06/16 10:00 Creatinine 0.61 Est GFR ( Amer) > 60 Est GFR (Non-Af Amer) > 60 Assessment & Plan - Diagnosis (1) Acute on chronic respiratory failure with hypoxia and hypercapnia Is this a current diagnosis for this admission?: YesPlan: slowly impoving, not back to baseline; continue intermittent BiPAP and attempts to wean off through the day, increase activity to bedside chair as her condition will allow; continue levaquin should cover Psa; continue nebs (2) Pneumonia Qualifiers: Pneumonia type: due to unspecified organism Laterality: right Lung location: upper lobe of lung Qualified Code(s): J18.1 - Lobar pneumonia, unspecified organism Is this a current diagnosis for this admission?: YesPlan: stable; as above (3) HTN (hypertension) Qualifiers: Hypertension type: essential hypertension Qualified Code(s): I10 - Essential (primary) hypertension Is this a current diagnosis for this admission?: Yes (4) Idiopathic pulmonary fibrosis Is this a current diagnosis for this admission?: YesPlan: stable; severity of the scarring raises her risk for nosocomial and GN organisms accounting for need for aggressive abx - Time Time Spent with patient: 25-34 minutes
[2016-10-07 11:13] LABS: CREATININE RESULT 0.51 mg/dL (0.52-1.25)
[2016-10-07] MEDS: LEVOFLOXACIN 750 MG/D5W RTU 750 MG/150 ML RTUPB IV SCH (17:21)
[2016-10-08] MEDS: IPRATROPIUM/ALBUTEROL 0.5-2.5 MG/3 ML AMPUL NEB SCH ×3 (07:40→20:28)
[2016-10-08] MEDS: ENOXAPARIN SODIUM INJ 40 MG/0.4 ML DISP.SYRIN SUBCUT SCH (08:17)
[2016-10-08] MEDS: SODIUM CHLORIDE NASAL SPRAY 44 ML NASL SCH ×4 (08:26→22:50)
[2016-10-08] MEDS: ASPIRIN 81 MG TABLET, ENT COATED PO SCH (09:11)
[2016-10-08] MEDS: FAMOTIDINE 20 MG TABLET PO SCH ×2 (09:12→22:49)
[2016-10-08] MEDS: METHYLPREDNISOLONE INJ 40 MG/1 ML SDV IV SCH ×2 (09:12→22:49)
[2016-10-08] MEDS: NORMAL SALINE 10 ML SDV (SCHEDULED) IV SCH ×2 (09:12→22:50)
[2016-10-08] MEDS: NORMAL SALINE 10 ML SDV (AFTER EACH USE) IV PRN (09:13)
--- NOTE | 2016-10-08 09:34 | PDOC PROGRESS REPORT ---
Subjective Progress Note for:: 10/08/16 Subjective:: reason for visit: f/u pneumonia, hypoxia hospital course: KEDAR CORDERO is a 71 year old female with known history of 3L/min O2 dependent COPD, mod - severe structural lung disease presents to the ED from home with several day history of worsening dyspnea, increasing cough with change in color and character of phlegm, subjective fevers and chills and increasing lethargy. she is found to have hypercapnea and probable RUL pneumonia requiring BiPAP to maintain adequate O2 sats and decrease her WOB and we were asked to admit for further management. she denies chest pain, palpitations, n/v/d, recent travel. she reports sick contact about 2 wks ago. admitted to [facility] due to risk for decompensation and respiratory compromise for BiPAP prn and home O2 with aggressive pulmonary toilet and broad spectrum IV abx. she continues to show steady, slow improvement overall, trying to spend more time off the BiPAP and more time in bedside chair. Her right knee continues to bother her and affects her breathing when the pain intensifies, described as sharp, stabbing, constant pain radiating into hip and thigh with ascted breathlessness (takes my breath away), relieved with rest and worse with ambulation or certain movements. sputum culx shows pansens Psa. ROS: feels better this morning, more alert and talkative. reports spending 70 % of the day yesterday in the chair on NRB rather than BIPAP; cough productive, she denies chest pain or palpitations, no n/v/d, fevers or chills. all systems reviewed, see HPI, remaining systems are negative Physical Exam Vital Signs: Temp Pulse Resp BP Pulse Ox 97.8 F 72 20 136/68 H 92 10/08/16 05:59 10/08/16 07:00 10/08/16 05:59 10/08/16 05:59 10/08/16 05:59 Pulse Oximeter Continuous Start: 10/04/16 14: 57 Freq: RTQ4 Status: Active Document 10/08/16 03:31 TPO (Rec: 10/08/16 03:33 TPO [email or web address]) Pulse Oximetry Assessment Oxygen Saturation (92-100) 97 Oxygen Delivery Method Bi-pap Fraction of Inspired Oxygen (FIO2) 60 Equipment Usage Equipment in Use Continuous SpO2 Machine # 7 Intake & Output 10/07/16 10/08/16 10/09/16 06:59 06:59 06:59 Intake Total 1280 710 Output Total 500 Balance 780 710 Weight 69.5 kg 69.7 kg General appearance: PRESENT: no acute distress, well-developed, well-nourished Head exam: PRESENT: atraumatic, normocephalic Eye exam: ABSENT: conjunctival injection, scleral icterus Neck exam: PRESENT: full ROM. ABSENT: tracheal deviation Respiratory exam: PRESENT: rales. ABSENT: accessory muscle use, rhonchi, wheezes Cardiovascular exam: PRESENT: RRR. ABSENT: systolic murmur Pulses: PRESENT: normal radial pulses Vascular exam: PRESENT: normal capillary refill GI/Abdominal exam: PRESENT: normal bowel sounds, soft. ABSENT: tenderness Musculoskeletal exam: PRESENT: tenderness. ABSENT: full ROM - limited in right knee due to pain Neurological exam: PRESENT: alert, awake, oriented to person, oriented to place , oriented to time Psychiatric exam: PRESENT: appropriate affect, normal mood Skin exam: PRESENT: warm. ABSENT: dry Results Laboratory Results: 10/05/16 03:59 10/07/16 09:45 10/07/16 09:45 Creatinine 0.51 L Est GFR ( Amer) > 60 Est GFR (Non-Af Amer) > 60 Assessment & Plan - Diagnosis (1) Acute on chronic respiratory failure with hypoxia and hypercapnia Is this a current diagnosis for this admission?: YesPlan: slowly impoving, not back to baseline; continue intermittent BiPAP and attempts to wean off through the day, increase activity to bedside chair as her condition will allow; continue levaquin should cover Psa; continue nebs (2) Pneumonia Qualifiers: Pneumonia type: due to unspecified organism Laterality: right Lung location: upper lobe of lung Qualified Code(s): J18.1 - Lobar pneumonia, unspecified organism Is this a current diagnosis for this admission?: YesPlan: stable; as above (3) HTN (hypertension) Qualifiers: Hypertension type: essential hypertension Qualified Code(s): I10 - Essential (primary) hypertension Is this a current diagnosis for this admission?: YesPlan: well controlled (4) Idiopathic pulmonary fibrosis Is this a current diagnosis for this admission?: YesPlan: stable; severity of the scarring raises her risk for nosocomial and GN organisms accounting for need for aggressive abx and her slow recovery. - Time Time Spent with patient: 15-24 minutes
[2016-10-08] MEDS: LEVOFLOXACIN 750 MG/D5W RTU 750 MG/150 ML RTUPB IV SCH (17:34)
[2016-10-08] MEDS: ACETAMINOPHEN 325 MG TABLET PO PRN (18:30)
[2016-10-09] MEDS: ACETAMINOPHEN 325 MG TABLET PO PRN (02:50)
[2016-10-09 05:30] LABS: ABSOLUTE LYMPHOCYTES (AUTO) 0.5 10^3/uL (0.5-4.7); ABSOLUTE MONOCYTES (AUTO) 0.3 10^3/uL (0.1-1.4); ABSOLUTE NEUT (AUTO) 9.3 10^3/uL (1.7-8.2); BASOPHILS % (AUTO) 0.1 % (0-2); HEMATOCRIT 35.2 % (36.0-47.0); HEMOGLOBIN 10.9 g/dL (12.0-15.5); HGB HCT DIFFERENCE -2.5; LYMPHOCYTES % (AUTO) 5.2 % (13-45); MEAN CORPUSCULAR HEMOGLOBIN 27.2 pg (27.0-33.4); MEAN CORPUSCULAR VOLUME 88 fl (80-97); MONOCYTES % (AUTO) 2.7 % (3-13); RED CELL DISTRIBUTION WIDTH 14.9 % (11.5-14.0); WHITE BLOOD COUNT 10.1 10^3/uL (4.0-10.5)
[2016-10-09 05:32] LABS: ANION GAP 6 (5-19); BLOOD UREA NITROGEN 29 mg/dL (7-20); CALCIUM 8.3 mg/dL (8.4-10.2); CARBON DIOXIDE 36 mmol/L (22-30); CHLORIDE 102 mmol/L (98-107); CREATININE RESULT 0.67 mg/dL (0.52-1.25); GLUCOSE 147 mg/dL (75-110); POTASSIUM 5.3 mmol/L (3.6-5.0); SODIUM 143.6 mmol/L (137-145)
[2016-10-09] MEDS: IPRATROPIUM/ALBUTEROL 0.5-2.5 MG/3 ML AMPUL NEB SCH ×3 (08:07→19:27)
[2016-10-09] MEDS: SODIUM CHLORIDE NASAL SPRAY 44 ML NASL SCH ×4 (08:35→22:34)
[2016-10-09] MEDS: ENOXAPARIN SODIUM INJ 40 MG/0.4 ML DISP.SYRIN SUBCUT SCH (08:35)
[2016-10-09] MEDS: METHYLPREDNISOLONE INJ 40 MG/1 ML SDV IV SCH ×2 (09:08→22:31)
[2016-10-09] MEDS: ASPIRIN 81 MG TABLET, ENT COATED PO SCH (09:08)
[2016-10-09] MEDS: FAMOTIDINE 20 MG TABLET PO SCH ×2 (09:09→22:31)
[2016-10-09] MEDS: NORMAL SALINE 10 ML SDV (SCHEDULED) IV SCH ×2 (09:09→22:32)
--- NOTE | 2016-10-09 10:29 | PDOC PROGRESS REPORT ---
Subjective Progress Note for:: 10/09/16 Subjective:: reason for visit: f/u pneumonia, hypoxia hospital course: KEDAR CORDERO is a 71 year old female with known history of 3L/min O2 dependent COPD, mod - severe structural lung disease presents to the ED from home with several day history of worsening dyspnea, increasing cough with change in color and character of phlegm, subjective fevers and chills and increasing lethargy. she is found to have hypercapnea and probable RUL pneumonia requiring BiPAP to maintain adequate O2 sats and decrease her WOB and we were asked to admit for further management. she denies chest pain, palpitations, n/v/d, recent travel. she reports sick contact about 2 wks ago. admitted to IMCU due to risk for decompensation and respiratory compromise for BiPAP prn and home O2 with aggressive pulmonary toilet and broad spectrum IV abx. she continues to show steady, slow improvement overall, trying to spend more time off the BiPAP and more time in bedside chair. Her right knee continues to bother her and affects her breathing when the pain intensifies, described as sharp, stabbing, constant pain radiating into hip and thigh with ascted breathlessness (takes my breath away), relieved with rest and worse with ambulation or certain movements. sputum culx shows pansens Psa. ROS: feels better again this morning, spending less time on BIPAP. cough remains productive, she denies chest pain or palpitations, no n/v/d, fevers or chills. all systems reviewed, see HPI, remaining systems are negative Physical Exam Vital Signs: Temp Pulse Resp BP Pulse Ox 97.7 F 92 20 127/69 H 96 10/09/16 08:18 10/09/16 08:18 10/09/16 08:18 10/09/16 08:18 10/09/16 08:18 Intake & Output 10/08/16 10/09/16 10/10/16 06:59 06:59 06:59 Intake Total 710 1270 Output Total 1000 Balance 710 270 Weight 69.7 kg 72.4 kg General appearance: PRESENT: no acute distress, well-developed, well-nourished Head exam: PRESENT: atraumatic, normocephalic Eye exam: ABSENT: conjunctival injection, scleral icterus Neck exam: PRESENT: full ROM. ABSENT: tracheal deviation Respiratory exam: PRESENT: rales - improved. ABSENT: accessory muscle use, rhonchi, wheezes Cardiovascular exam: PRESENT: RRR. ABSENT: systolic murmur Pulses: PRESENT: normal radial pulses Vascular exam: PRESENT: normal capillary refill GI/Abdominal exam: PRESENT: normal bowel sounds, soft. ABSENT: tenderness Musculoskeletal exam: PRESENT: tenderness. ABSENT: full ROM - limited in right knee due to pain Neurological exam: PRESENT: alert, awake, oriented to person, oriented to place , oriented to time Psychiatric exam: PRESENT: appropriate affect, normal mood Skin exam: PRESENT: warm. ABSENT: dry Results Laboratory Results: 10/09/16 04:50 10/09/16 04:50 10/09/16 10/09/16 04:50 04:50 WBC 10.1 RBC 4.00 Hgb 10.9 L Hct 35.2 L MCV 88 MCH 27.2 MCHC 31.0 L RDW 14.9 H Plt Count 169 Seg Neutrophils % 92.0 H Lymphocytes % 5.2 L Monocytes % 2.7 L Eosinophils % 0.0 Basophils % 0.1 Absolute Neutrophils 9.3 H Absolute Lymphocytes 0.5 Absolute Monocytes 0.3 Absolute Eosinophils 0.0 Absolute Basophils 0.0 Sodium 143.6 Potassium 5.3 H Chloride 102 Carbon Dioxide 36 H Anion Gap 6 BUN 29 H Creatinine 0.67 Est GFR ( Amer) > 60 Est GFR (Non-Af Amer) > 60 Glucose 147 H Calcium 8.3 L Assessment & Plan - Diagnosis (1) Acute on chronic respiratory failure with hypoxia and hypercapnia Is this a current diagnosis for this admission?: Yes (2) Pneumonia Qualifiers: Pneumonia type: due to unspecified organism Laterality: right Lung location: upper lobe of lung Qualified Code(s): J18.1 - Lobar pneumonia, unspecified organism Is this a current diagnosis for this admission?: Yes (3) HTN (hypertension) Qualifiers: Hypertension type: essential hypertension Qualified Code(s): I10 - Essential (primary) hypertension Is this a current diagnosis for this admission?: Yes (4) Idiopathic pulmonary fibrosis Is this a current diagnosis for this admission?: Yes - Time Time Spent with patient: 25-34 minutes - Plan Summary Plan Summary: overall improving and quite possibly can transition home or to rehab Monday
[2016-10-09] MEDS ORDERED: POTASSI CL 20 MEQ/50 ML RIDER 0 MEQ/0 ML RTUPB IV ONE (14:35)
[2016-10-09] MEDS: LEVOFLOXACIN 750 MG/D5W RTU 750 MG/150 ML RTUPB IV SCH (17:11)
[2016-10-09] MEDS: GUAIFENESIN SYRP 200 MG/10 ML UDC PO PRN (22:33)
[2016-10-10] MEDS: IPRATROPIUM/ALBUTEROL 0.5-2.5 MG/3 ML AMPUL NEB SCH ×3 (07:46→20:28)
[2016-10-10] MEDS ORDERED: BENZOCAINE/MENTHOL SORE THROAT LOZENGE BUCCAL PRN (09:38)
[2016-10-10] MEDS: METHYLPREDNISOLONE INJ 40 MG/1 ML SDV IV SCH ×2 (10:48→22:00)
[2016-10-10] MEDS: SODIUM CHLORIDE NASAL SPRAY 44 ML NASL SCH ×3 (10:48→22:22)
[2016-10-10] MEDS: ENOXAPARIN SODIUM INJ 40 MG/0.4 ML DISP.SYRIN SUBCUT SCH (10:48)
[2016-10-10] MEDS: FAMOTIDINE 20 MG TABLET PO SCH ×2 (10:48→22:22)
[2016-10-10] MEDS: ASPIRIN 81 MG TABLET, ENT COATED PO SCH (10:48)
--- NOTE | 2016-10-10 12:41 | PDOC PROGRESS REPORT ---
Subjective Progress Note for:: 10/10/16 Subjective:: reason for visit: f/u pneumonia, hypoxia hospital course: KEDAR CORDERO is a 71 year old female with known history of 3L/min O2 dependent COPD, mod - severe structural lung disease presents to the ED from home with several day history of worsening dyspnea, increasing cough with change in color and character of phlegm, subjective fevers and chills and increasing lethargy. she is found to have hypercapnea and probable RUL pneumonia requiring BiPAP to maintain adequate O2 sats and decrease her WOB and we were asked to admit for further management. she denies chest pain, palpitations, n/v/d, recent travel. she reports sick contact about 2 wks ago. admitted to IMCU due to risk for decompensation and respiratory compromise for BiPAP prn and home O2 with aggressive pulmonary toilet and broad spectrum IV abx. she continues to show steady, slow improvement overall, trying to spend more time off the BiPAP and more time in bedside chair. still requiring upwards of 15L/min by NRB though to maintain sats consistently >88%, which should be her goal. Her right knee bothers her and affects her breathing when the pain intensifies, described as sharp, stabbing, constant pain radiating into hip and thigh with ascted breathlessness (takes my breath away), relieved with rest and worse with ambulation or certain movements. sputum culx shows pansens Psa. ROS: feels better again this morning, has not been on BIPAP for last 36 hrs.. cough remains wet and productive, she denies chest pain or palpitations, no n/ v/d, fevers or chills. all systems reviewed, see HPI, remaining systems are negative Physical Exam Vital Signs: Temp Pulse Resp BP Pulse Ox 97.8 F 91 22 H 122/57 L 85 L 10/10/16 09:18 10/10/16 09:18 10/10/16 09:18 10/10/16 09:18 10/10/16 09:18 Intake & Output 10/09/16 10/10/16 10/11/16 06:59 06:59 06:59 Intake Total 1270 1165 Output Total 1000 700 Balance 270 465 Weight 72.4 kg 73.2 kg General appearance: PRESENT: no acute distress, well-developed, well-nourished, sitting in bedside chair Head exam: PRESENT: atraumatic, normocephalic Eye exam: ABSENT: conjunctival injection, scleral icterus Neck exam: PRESENT: full ROM. ABSENT: tracheal deviation Respiratory exam: PRESENT: rales - improved. ABSENT: accessory muscle use, rhonchi, wheezes Cardiovascular exam: PRESENT: RRR. ABSENT: systolic murmur Pulses: PRESENT: normal radial pulses Vascular exam: PRESENT: normal capillary refill GI/Abdominal exam: PRESENT: normal bowel sounds, soft. ABSENT: tenderness Musculoskeletal exam: PRESENT: tenderness. ABSENT: full ROM - limited in right knee due to pain; small joint effusion but no heat or erythema present Neurological exam: PRESENT: alert, awake, oriented to person, oriented to place , oriented to time Psychiatric exam: PRESENT: appropriate affect, normal mood Skin exam: PRESENT: warm. ABSENT: dry Results Laboratory Results: 10/09/16 04:50 10/09/16 04:50 Assessment & Plan - Diagnosis (1) Acute on chronic respiratory failure with hypoxia and hypercapnia Is this a current diagnosis for this admission?: YesPlan: slowly impoving, not back to baseline; continue intermittent BiPAP prn, increase activity to bedside chair as her condition will allow; continue levaquin should cover Psa for a prolonged course; continue nebs (2) Pneumonia Qualifiers: Pneumonia type: due to unspecified organism Laterality: right Lung location: upper lobe of lung Qualified Code(s): J18.1 - Lobar pneumonia, unspecified organism Is this a current diagnosis for this admission?: YesPlan: stable; as above (3) HTN (hypertension) Qualifiers: Hypertension type: essential hypertension Qualified Code(s): I10 - Essential (primary) hypertension Is this a current diagnosis for this admission?: YesPlan: well controlled (4) Idiopathic pulmonary fibrosis Is this a current diagnosis for this admission?: YesPlan: stable; severity of the scarring raises her risk for nosocomial and GN organisms accounting for need for prolonged aggressive abx and her slow recovery. (5) Sore throat Is this a current diagnosis for this admission?: YesPlan: add topical care and monitor, no evidence for thrush or pharyngitis at present - Time Time Spent with patient: 25-34 minutes Anticipated discharge: Acute Rehab Within: within 48 hours - Plan Summary Plan Summary: she is just not progressing enough to go home. I really fanny she is better served with a short course of rehab to continue efforts to wean down to usual 3L /min home O2; child care coordinator consulted for options. if condition worsens then would consult pulmonary for their assistance.
[2016-10-10] MEDS: NORMAL SALINE 10 ML SDV (SCHEDULED) IV SCH ×2 (12:49→22:26)
[2016-10-10] MEDS: ACETAMINOPHEN 325 MG TABLET PO PRN (12:59)
[2016-10-10] MEDS: GUAIFENESIN SYRP 200 MG/10 ML UDC PO PRN ×2 (16:32→22:22)
[2016-10-10] MEDS: LEVOFLOXACIN 750 MG/D5W RTU 750 MG/150 ML RTUPB IV SCH (17:00)
[2016-10-11 05:57] LABS: ABSOLUTE LYMPHOCYTES (AUTO) 0.5 10^3/uL (0.5-4.7); ABSOLUTE MONOCYTES (AUTO) 0.3 10^3/uL (0.1-1.4); ABSOLUTE NEUT (AUTO) 7.5 10^3/uL (1.7-8.2); BASOPHILS % (AUTO) 0.1 % (0-2); HEMATOCRIT 34.6 % (36.0-47.0); HEMOGLOBIN 10.7 g/dL (12.0-15.5); HGB HCT DIFFERENCE -2.5; LYMPHOCYTES % (AUTO) 6.3 % (13-45); MEAN CORPUSCULAR HEMOGLOBIN 27.3 pg (27.0-33.4); MEAN CORPUSCULAR HGB CONC 30.9 g/dL (32.0-36.0); MEAN CORPUSCULAR VOLUME 89 fl (80-97); MONOCYTES % (AUTO) 3.3 % (3-13); RED CELL DISTRIBUTION WIDTH 14.8 % (11.5-14.0); SEGMENTED NEUTROPHILS % (AUTO) 90.3 % (42-78); WHITE BLOOD COUNT 8.3 10^3/uL (4.0-10.5)
[2016-10-11 06:14] LABS: BLOOD UREA NITROGEN 28 mg/dL (7-20); CALCIUM 8.3 mg/dL (8.4-10.2); CARBON DIOXIDE 39 mmol/L (22-30); CHLORIDE 98 mmol/L (98-107); CREATININE RESULT 0.56 mg/dL (0.52-1.25); GLUCOSE 133 mg/dL (75-110); POTASSIUM 5.2 mmol/L (3.6-5.0)
[2016-10-11 06:27] LABS: SODIUM 140.5 mmol/L (137-145)
[2016-10-11 06:28] LABS: ANION GAP 4 (5-19)
[2016-10-11] MEDS ORDERED: IMIPENEM/CILASTATIN SODIUM 1,000 MG in NORMAL SALINE 250 ML IV SCH (08:00)
[2016-10-11] MEDS: IPRATROPIUM/ALBUTEROL 0.5-2.5 MG/3 ML AMPUL NEB SCH ×3 (08:10→20:22)
[2016-10-11] MEDS: FAMOTIDINE 20 MG TABLET PO SCH ×2 (08:56→22:00)
[2016-10-11] MEDS: ASPIRIN 81 MG TABLET, ENT COATED PO SCH (08:58)
[2016-10-11] MEDS: LACTOBACILLUS ACIDOPHILUS 250 MG TAB PO SCH ×2 (08:58→17:49)
[2016-10-11] MEDS: SODIUM CHLORIDE NASAL SPRAY 44 ML NASL SCH ×4 (08:59→22:00)
[2016-10-11] MEDS: METHYLPREDNISOLONE INJ 40 MG/1 ML SDV IV SCH ×2 (09:00→21:52)
[2016-10-11] MEDS: ENOXAPARIN SODIUM INJ 40 MG/0.4 ML DISP.SYRIN SUBCUT SCH (09:06)
[2016-10-11] MEDS: NORMAL SALINE 10 ML SDV (SCHEDULED) IV SCH ×2 (09:15→21:55)
[2016-10-11] MEDS: IMIPENEM/CILASTATIN SODIUM 500 MG in NORMAL SALINE 100 ML IV SCH ×3 (12:14→23:51)
[2016-10-11] MEDS ORDERED: TOBRAMYCIN SULFATE INJ 80 MG/2 ML VIAL NEB ONE (13:45)
--- NOTE | 2016-10-11 14:02 | PDOC PROGRESS REPORT ---
Subjective Progress Note for:: 10/11/16 Subjective:: The patient is a pleasant but unfortunate 71-year-old -Spanish female with oxygen dependent COPD. She is on 3 L of oxygen at home at baseline. She follows with Dr. Guerrero Kramer full stack web developer in [facility] when I saw the patient today her brother was at the bedside. I spent quite some time discussing the plan of care with them and all of their questions were answered. Overall the patient is quite frustrated because she would like to go home but notes that she cannot on [facility] she presented to the emergency room with a several day history of worsening shortness of breath and dyspnea. She was found to have a probable right upper lobe pneumonia and she was initially requiring BiPAP. Sputum culture was positive for a pansensitive Pseudomonas and she has been in the hospital for the past several days receiving IV Levaquin , aggressive breathing treatment and pulmonary toilet. Overall however she has not improved. She is still requiring 15 L via nonrebreather to maintain her O2 saturations. When I saw the patient today she is sitting in a chair with her brother at the bedside. I spent quite some time getting the history from the patient. Apparently at some point in the past she was evaluated at [facility] for a potential lung transplant. It is unclear to me why this was not done but apparently either the patient did not have the family support or she was deemed not be a candidate. In any event she follows quite closely with Dr. Kramer. She states that she continues to be significantly short of breath. She has had no fever or chills overnight. No chest pain or heart palpitations. She is tolerating her diet but it is difficult to eat because she is requiring a nonrebreather. She has had no nausea, vomiting or diarrhea. No dysuria, frequency or hematuria. Physical Exam Vital Signs: Temp Pulse Resp BP Pulse Ox 98.6 F 86 24 H 103/54 L 95 10/11/16 11:40 10/11/16 11:40 10/11/16 11:40 10/11/16 11:40 10/11/16 11:40 Pulse Oximeter Continuous Start: 10/04/16 14: 57 Freq: RTQ4 Status: Active Document 10/11/16 08:00 [facility] (Rec: 10/11/16 08:28 DS [email or web address]) Pulse Oximetry Assessment Oxygen Saturation (92-100) 89 Oxygen Flow Rate (L/min) 6 Oxygen Delivery Method Nasal Cannula Equipment Usage Equipment in Use Continuous SpO2 Machine # 10 Intake & Output 10/10/16 10/11/16 10/12/16 06:59 06:59 06:59 Intake Total 1165 1015 Output Total 700 900 Balance 465 115 Weight 73.2 kg 75 kg General appearance: PRESENT: no acute distress, other - She is wearing a nonrebreather. She is somewhat short of breath. Head exam: PRESENT: atraumatic, normocephalic Mouth exam: PRESENT: moist Respiratory exam: PRESENT: decreased breath sounds, rhonchi Cardiovascular exam: PRESENT: RRR, +S1, +S2. ABSENT: diastolic murmur, gallop, systolic murmur GI/Abdominal exam: PRESENT: normal bowel sounds, soft. ABSENT: tenderness Extremities exam: ABSENT: clubbing, tenderness Results Laboratory Results: 10/11/16 05:30 10/11/16 05:30 10/11/16 10/11/16 05:30 05:30 WBC 8.3 RBC 3.90 Hgb 10.7 L Hct 34.6 L MCV 89 MCH 27.3 MCHC 30.9 L RDW 14.8 H Plt Count 176 Seg Neutrophils % 90.3 H Lymphocytes % 6.3 L Monocytes % 3.3 Eosinophils % 0.0 Basophils % 0.1 Absolute Neutrophils 7.5 Absolute Lymphocytes 0.5 Absolute Monocytes 0.3 Absolute Eosinophils 0.0 Absolute Basophils 0.0 Sodium 140.5 Potassium 5.2 H Chloride 98 Carbon Dioxide 39 H Anion Gap 4 L BUN 28 H Creatinine 0.56 Est GFR ( Amer) > 60 Est GFR (Non-Af Amer) > 60 Glucose 133 H Calcium 8.3 L 10/11/16 05:30 NT-Pro-B Natriuret Pep 1750 H Impressions: Chest X-Ray 10/04/16 11:48 IMPRESSION: EXTENSIVE CHRONIC PULMONARY FIBROSIS. PROBABLE SUPERIMPOSED INFILTRATE SECONDARY TO PNEUMONIA IN THE RIGHT UPPER LOBE. POSSIBLE SIMILAR FINDING IN THE LEFT UPPER LOBE. Interventional Vascular Procedure 10/05/16 00:00 IMPRESSION: Placement of left basilic vein PICC. PICC Line Insertion 10/05/16 00:00 IMPRESSION: Placement of left basilic vein PICC. Assessment & Plan - Diagnosis (1) Acute on chronic respiratory failure with hypoxia and hypercapnia Is this a current diagnosis for this admission?: YesPlan: The patient has acute on chronic hypoxic and hypercapnic respiratory failure. Her hospitalization was reviewed to date. I am going to consult Dr. Singh for his recommendations. I am going to obtain a stat CT angiography of the chest to further evaluate her lungs, confirm that this is pneumonia as well as rule out pulmonary embolism or underlying mass lesion. She does have Pseudomonas growing in her sputum. I do not know whether she is colonized. She does not look particularly toxic at this point. I am going to start the patient on imipenem and discontinue her Levaquin that she has been receiving for the past several days that she does not seem to be much better. Certainly we can place her back on Levaquin if she improves. I am going to ask the nursing staff to get records from full stack web developer. I am going to get a stat ABG just to see where we are. Also will start the patient on tobramycin nebulizer treatments just for today until she can be evaluated by Dr. Singh. I will defer to his expertise on whether to continue this. We will follow up with these results and hopefully we can get her weaned off of the nonrebreather and decrease her oxygen requirement over the next couple of days. (2) Idiopathic pulmonary fibrosis Is this a current diagnosis for this admission?: YesPlan: Plan as above. She follows with Dr. Guerrero Kramer and I am going to get the nursing staff to obtain records. Dr. Singh will be consulted here for further recommendations. (3) Pneumonia Qualifiers: Pneumonia type: due to unspecified organism Laterality: right Lung location: upper lobe of lung Qualified Code(s): J18.1 - Lobar pneumonia, unspecified organism Is this a current diagnosis for this admission?: YesPlan: The patient has a Pseudomonas pneumonia. I am going to change her antibiotic therapy to imipenem for today. I am going to discontinue her Levaquin. It is unclear whether this is just a chronic colonization in this patient. I am going to give her tobramycin nebulizer treatments today as she does have known pulmonary fibrosis. We are going to get a CT scan of her chest. The patient no underlying pneumonia then antibiotics could likely be stopped as this would be colonization. We will defer to Dr. Singh for further recommendations. (4) Hyperkalemia Plan: This is just slightly above normal. We will recheck a chemistry panel in the morning. - Time Time Spent with patient: 35 or more minutes
[2016-10-11 15:07] LABS: ARTERIAL BLOOD O2 SATURATION 90.5 % (94-98)
[2016-10-11] MEDS ORDERED: TOBRAMYCIN SULFATE NEB 40 MG/ML 30 ML NEB ONE (15:15)
--- NOTE | 2016-10-11 15:38 | RADIOLOGY REPORT (SQ) ---
EXAM DESCRIPTION: CT CHEST WITHOUT COMPLETED DATE/TIME: 10/11/2016 3:17 pm REASON FOR STUDY: PNA, resp failure, r/o PE COMPARISON: CT chest 01/10/2011, 04/26/2009 TECHNIQUE: CT scan performed of the chest without intravenous contrast. Images reviewed with lung, soft tissue and bone windows. Reconstructed coronal and sagittal MPR images reviewed. All images st ored on PACS. All CT scanners at this facility use dose modulation, iterative reconstruction, and/or weight based d osing when appropriate to reduce radiation dose to as low as reasonably achievable (ALARA). [facility]: Dose Right [facility]: CareDose [facility]: Dose Right [facility]: Teradose 4D [facility]: Smart enymotion RADIATION DOSE: Up-to-date CT equipment and radiation dose reduction techniques were employed. CTDIv ol: 8.8 mGy. DLP: 286 mGy-cm. mGy. LIMITATIONS: No technical limitations. FINDINGS: LUNGS AND PLEURA: There is end-stage appearance of interstitial lung disease with enlarged airspaces with thickened interlobular septa around the periphery of both lungs. This has progressed since prior CT chest in 2010, no involving nearly all the lung parenchyma. On today's study, there is ground-glass opacity in the posterior aspect right upper lobe and superior segment right lower lobe which could indicate pneumonia or alveolar inflammation/ edema. No lung abscess. No pleural effusions. No pneumothorax. Calcified coronary arteries HILAR AND MEDIASTINAL STRUCTURES: No identified masses or abnormal nodes. No obvious aneurysm. HEART AND VASCULAR STRUCTURES: No aneurysm. No pericardial effusion. UPPER ABDOMEN: No significant findings. Limited exam. THYROID AND OTHER SOFT TISSUES: No masses. No adenopathy. BONES: No significant finding. HARDWARE: Left-sided triple-lumen catheter tip superior vena cava OTHER: No other significant findings. IMPRESSION: Progression of diffuse lung disease since prior CT chest. There is now ground-glass opacity in the right upper lobe and superior segment right lower lobe, pneu monia versus edema versus pneumonitis. No pleural effusions. TECHNICAL DOCUMENTATION: JOB ID: [id number] Quality ID # [id number]: Final reports with documentation of one or more dose reduction techniques (e.g., Au tomated exposure control, adjustment of the mA and/or kV according to patient size, use of iterative reconstruction technique) 2010 [employer]- All Rights Reserved
[2016-10-11] MEDS: LEVOFLOXACIN 750 MG TABLET PO SCH (17:49)
[2016-10-11] MEDS: ACETAMINOPHEN 325 MG TABLET PO PRN (17:51)
[2016-10-11] MEDS: GUAIFENESIN SYRP 200 MG/10 ML UDC PO PRN (17:52)
[2016-10-11] MEDS ORDERED: TOBRAMYCIN SULFATE INJ 80 MG/2 ML VIAL NEB SCH (20:00)
[2016-10-11] MEDS: TOBRAMYCIN SULFATE NEB 40 MG/ML 30 ML NEB SCH (20:21)
[2016-10-12 05:14] LABS: HEMATOCRIT 33.6 % (36.0-47.0); HEMOGLOBIN 10.3 g/dL (12.0-15.5); HGB HCT DIFFERENCE -2.7; MEAN CORPUSCULAR HEMOGLOBIN 27.3 pg (27.0-33.4); MEAN CORPUSCULAR HGB CONC 30.6 g/dL (32.0-36.0); MEAN CORPUSCULAR VOLUME 89 fl (80-97); RED BLOOD COUNT 3.77 10^6/uL (3.72-5.28); RED CELL DISTRIBUTION WIDTH 15.1 % (11.5-14.0); WHITE BLOOD COUNT 7.8 10^3/uL (4.0-10.5)
[2016-10-12 05:34] LABS: BLOOD UREA NITROGEN 29 mg/dL (7-20); CALCIUM 8.3 mg/dL (8.4-10.2); CHLORIDE 99 mmol/L (98-107); CREATININE RESULT 0.54 mg/dL (0.52-1.25); GLUCOSE 131 mg/dL (75-110); MAGNESIUM 2.2 mg/dL (1.6-2.3)
[2016-10-12 05:36] LABS: POTASSIUM 5.3 mmol/L (3.6-5.0)
[2016-10-12 05:43] LABS: ANION GAP 6 (5-19); CARBON DIOXIDE 36 mmol/L (22-30); SODIUM 141.1 mmol/L (137-145)
[2016-10-12] MEDS: IMIPENEM/CILASTATIN SODIUM 500 MG in NORMAL SALINE 100 ML IV SCH ×3 (06:35→17:27)
[2016-10-12] MEDS ORDERED: FUROSEMIDE INJ/PF 20 MG/2 ML SDV IV ONE (07:28)
[2016-10-12] MEDS: IPRATROPIUM/ALBUTEROL 0.5-2.5 MG/3 ML AMPUL NEB SCH ×3 (08:07→19:40)
[2016-10-12] MEDS: TOBRAMYCIN SULFATE NEB 40 MG/ML 30 ML NEB SCH ×2 (08:08→19:39)
[2016-10-12] MEDS: ENOXAPARIN SODIUM INJ 40 MG/0.4 ML DISP.SYRIN SUBCUT SCH (08:43)
[2016-10-12] MEDS: SODIUM CHLORIDE NASAL SPRAY 44 ML NASL SCH ×4 (08:43→21:19)
[2016-10-12] MEDS: FAMOTIDINE 20 MG TABLET PO SCH ×2 (08:47→21:19)
[2016-10-12] MEDS: LACTOBACILLUS ACIDOPHILUS 250 MG TAB PO SCH ×2 (08:47→17:26)
[2016-10-12] MEDS: ASPIRIN 81 MG TABLET, ENT COATED PO SCH (08:47)
[2016-10-12] MEDS: NORMAL SALINE 10 ML SDV (SCHEDULED) IV SCH ×2 (08:48→21:19)
[2016-10-12] MEDS: METHYLPREDNISOLONE INJ 40 MG/1 ML SDV IV SCH ×2 (08:48→21:19)
--- NOTE | 2016-10-12 13:49 | PDOC PROGRESS REPORT ---
Subjective Progress Note for:: 10/12/16 Subjective:: The patient has been seen by Dr. Singh today. He is going to follow along with this here in the hospital and we certainly appreciate his input. He states she may be a candidate for a trilogy machine and he is going to look into that. Overall the family was informed that the patient's prognosis is quite poor at this point. Dr. Singh suggested possibly getting hospice involved. I spoke at length to the family as well as the patient today and all of their questions were answered. Ultimately they would like to see how much improvement she will make over the next couple of days make further decisions as we go along. Today when I saw the patient she is awake and alert but a little lethargic. She answers questions appropriately. She has had no fever or chills overnight. She is having no chest pain or heart palpitations. She is currently on 7 L nonrebreather and her oxygen saturations are stable. She continues to get significantly short of breath with any movement. No nausea, vomiting or diarrhea. No dysuria, frequency or hematuria. Physical Exam Vital Signs: Temp Pulse Resp BP Pulse Ox 98.0 F 90 22 H 117/70 100 10/12/16 12:00 10/12/16 12:00 10/12/16 12:00 10/12/16 12:00 10/12/16 12:00 Pulse Oximeter Continuous Start: 10/04/16 14: 57 Freq: RTQ4 Status: Active Document 10/12/16 12:00 [facility] (Rec: 10/12/16 12:10 [facility] [email or web address]) Pulse Oximetry Assessment Oxygen Saturation (92-100) 98 Oxygen Flow Rate (L/min) 12 Oxygen Delivery Method Non-Rebreather Fraction of Inspired Oxygen (FIO2) 100 Equipment Usage Equipment in Use Continuous SpO2 Machine # 10 Intake & Output 10/11/16 10/12/16 10/13/16 06:59 06:59 06:59 Intake Total 1015 1114 Output Total 900 900 Balance 115 214 Weight 75 kg 74.5 kg General appearance: PRESENT: no acute distress Head exam: PRESENT: atraumatic, normocephalic Mouth exam: PRESENT: moist Respiratory exam: PRESENT: decreased breath sounds. ABSENT: accessory muscle use, chest wall tenderness Cardiovascular exam: PRESENT: RRR, +S1, +S2. ABSENT: diastolic murmur, gallop, rubs, systolic murmur GI/Abdominal exam: PRESENT: normal bowel sounds, soft. ABSENT: tenderness Neurological exam: PRESENT: alert, awake, oriented to person, oriented to place , oriented to time, oriented to situation Psychiatric exam: PRESENT: appropriate affect Skin exam: PRESENT: dry, warm Results Laboratory Results: 10/12/16 04:17 10/12/16 04:17 10/11/16 10/12/16 10/12/16 14:55 04: 04:17 WBC 7.8 RBC 3.77 Hgb 10.3 L Hct 33.6 L MCV 89 MCH 27.3 MCHC 30.6 L RDW 15.1 H Plt Count 172 Carbonic Acid 2.04 H HCO3/H2CO3 Ratio 19:1 ABG pH 7.38 ABG pCO2 67.7 H ABG pO2 62.4 L ABG HCO3 38.8 H ABG O2 Saturation 90.5 L ABG Base Excess 11.0 FiO2 10L Sodium 141.1 Potassium 5.3 H Chloride 99 Carbon Dioxide 36 H Anion Gap 6 BUN 29 H Creatinine 0.54 Est GFR ( Amer) > 60 Est GFR (Non-Af Amer) > 60 Glucose 131 H Calcium 8.3 L Magnesium 2.2 10/11/16 05:30 NT-Pro-B Natriuret Pep 1750 H Impressions: Chest X-Ray 10/04/16 11:48 IMPRESSION: EXTENSIVE CHRONIC PULMONARY FIBROSIS. PROBABLE SUPERIMPOSED INFILTRATE SECONDARY TO PNEUMONIA IN THE RIGHT UPPER LOBE. POSSIBLE SIMILAR FINDING IN THE LEFT UPPER LOBE. Interventional Vascular Procedure 10/05/16 00:00 IMPRESSION: Placement of left basilic vein PICC. PICC Line Insertion 10/05/16 00:00 IMPRESSION: Placement of left basilic vein PICC. Chest CT 10/11/16 00:00 IMPRESSION: Progression of diffuse lung disease since prior CT chest. There is now ground-glass opacity in the right upper lobe and superior segment right lower lobe, pneumonia versus edema versus pneumonitis. No pleural effusions. Assessment & Plan - Diagnosis (1) Acute on chronic respiratory failure with hypoxia and hypercapnia Is this a current diagnosis for this admission?: YesPlan: The patient has acute on chronic hypoxic and hypercapnic respiratory failure. Antibiotic therapy will be outlined below. Dr. Singh is indicated that he would like for her to continue the tobramycin nebulizer treatments. Respiratory therapy is following her closely. Ultimately Dr. Singh thinks she may end up that from a trilogy machine. He is going to look into this. We certainly appreciate his assistance with this difficult situation. (2) Idiopathic pulmonary fibrosis Is this a current diagnosis for this admission?: YesPlan: The patient's CT scan obtained yesterday reveals worsening from her previous scan a few weeks ago. This is per Dr. Stubbs radiologist who read the report. Dr. Singh is following the patient. Certainly she has end-stage pulmonary process at this point. At this point discussions have been had with the family and they want to see how much she improves over the next couple of days. They are aware that she may not improve and may need to get hospice involved. (3) Pneumonia Qualifiers: Pneumonia type: due to unspecified organism Laterality: right Lung location: upper lobe of lung Qualified Code(s): J18.1 - Lobar pneumonia, unspecified organism Is this a current diagnosis for this admission?: YesPlan: The patient has a Pseudomonas pneumonia. It is unclear how much of this is just colonization. She has improved on imipenem. We will continue this for now. We will also continue tobramycin nebulizer treatments and p.o. Levaquin. I will defer to Dr. Singh for length of therapy. (4) Hyperkalemia Plan: Her level is still slightly high. She will have a chemistry panel drawn in the morning - Time Time Spent with patient: 35 or more minutes - Plan Summary Plan Summary: Inpatient hospitalization remains necessary. The patient's prognosis is quite guarded at this point. She is requiring parenteral therapies. Timing of disposition will be determined by her clinical course.
--- NOTE | 2016-10-12 15:17 | PDOC CONSULTATION ---
Consultation Consult Date: 10/12/16 Attending physician:: RAE MUNOZ Consult reason:: acute/chronic hypoxic/hypercapnic resp failure History of Present Illness Admission Date/PCP: 10/04/16 14:56 LISA ZHOU MD History of Present Illness: KEDAR CORDERO is a 71 year old female with known history of 3L/min O2 dependent COPD, mod - severe structural lung disease presents to the ED from home with several day history of worsening dyspnea, increasing cough with change in color and character of phlegm, subjective fevers and chills and increasing lethargy. she is found to have hypercapnea and probable RUL pneumonia requiring BiPAP to maintain adequate O2 sats and decrease her WOB and we were asked to admit for further management. she denies chest pain, palpitations, n/v/d, recent travel. she reports sick contact about 2 wks ago. Past Medical History Cardiac Medical History: Reports: Hypertension Denies: Atrial Fibrillation, Congestive Heart Failure, Coronary Artery Disease, Myocardial Infarction, Hyperlipidema, Peripheral Vascular Disease, Pulmonary Embolism, Heart Murmur Pulmonary Medical History: Reports: Bronchitis, Chronic Obstructive Pulmonary Disease (COPD), Pneumonia Denies: Asthma, Respiratory Failure, Sleep Apnea, Tuberculosis Malignancy Medical History: Denies: Breast Cancer, Cervical Cancer, Lung Cancer, Ovarian Cancer Musculoskeltal Medical History: Reports: Arthritis Denies: Fibromyalgia Psychiatric Medical History: Denies: Depression Past Surgical History Past Surgical History: Reports: Tonsillectomy Denies: Amputation, Appendectomy, Section, Cholecystectomy, Coronary Artery Bypass Graft, Gastric Bypass Surgery, Herniorrhaphy, Hysterectomy, Mastectomy, Tubal Ligation Social History Information Source: Patient, Relative, Emergency Med Personnel, Dr. Roa, [facility] Records Lives with: Alone Smoking Status: Current Every Day Smoker Cigarettes Packs Per Day: 0.5 Number of Years Smokin Last Time Smoked: 6-10-17 Passive smoke exposure as: Both Frequency of Alcohol Use: None Hx Recreational Drug Use: No Hx Prescription Drug Abuse: No Do you have pets?: No Have you had any respiratory illnesses as a child?: No Have you been exposed to any sick contacts recently?: No Have you travelled outside of [place] in the past 12 months?: No - Advance Directive Resuscitation Status: Full Code Family History Family History: Reviewed & Not Pertinent - to current illness Parental Family History Reviewed: Yes Children Family History Reviewed: Yes Sibling(s) Family History Reviewed.: Yes Medication/Allergy Home Medications: Albuterol Sulfate [Proair HFA] 2 puff IH Q4 PRN 10/04/16 Amlodipine Besylate/Benazepril [Amlodipine-Benazepril 10-20 mg] 1 cap PO DAILY 10/04/16 Aspirin [Aspirin EC] 81 mg PO DAILY 10/04/16 Budesonide/Formoterol Fumarate [Symbicort Hfa 160-4.5 Mcg Inhaler 6 gm] 1 puff IH Q12 10/06/16 Allergies/Adverse Reactions: Penicillins Allergy (Verified 08/30/16 12:17) Swelling Shellfish * [Shellfish] Allergy (Verified 08/30/16 12:17) Passed out, Unsure Physical Exam Vital Signs: Temp Pulse Resp BP Pulse Ox 97.8 F 75 12 110/65 98 10/12/16 07:31 10/12/16 07:31 10/12/16 07:31 10/12/16 07:31 10/12/16 08:00 Pulse Oximeter Continuous Start: 10/04/16 14: 57 Freq: RTQ4 Status: Active Document 10/12/16 04:05 [facility] (Rec: 10/12/16 04:22 [facility] [email or web address]) Pulse Oximetry Assessment Oxygen Saturation (92-100) 97 Oxygen Delivery Method Bi-pap Fraction of Inspired Oxygen (FIO2) 60 Equipment Usage Equipment in Use Continuous SpO2 Machine # 10 Intake & Output 10/11/16 10/12/16 10/13/16 06:59 06:59 06:59 Intake Total 1015 1114 Output Total 900 900 Balance 115 214 Weight 75 kg 74.5 kg General appearance: PRESENT: disheveled, mild distress, obese, well-developed Head exam: PRESENT: atraumatic, normocephalic Eye exam: PRESENT: conjunctiva pale, EOMI Mouth exam: PRESENT: dry mucosa, neck supple, tongue midline Neck exam: ABSENT: carotid bruit, JVD, lymphadenopathy, thyromegaly Respiratory exam: PRESENT: decreased breath sounds, prolonged expiratory phas, rales, rhonchi, symmetrical, wheezes Cardiovascular exam: PRESENT: RRR, +S1, +S2 Pulses: PRESENT: normal radial pulses GI/Abdominal exam: PRESENT: normal bowel sounds, soft. ABSENT: distended, guarding, mass, organolmegaly, rebound, tenderness Rectal exam: PRESENT: deferred Musculoskeletal exam: PRESENT: normal inspection Neurological exam: PRESENT: alert, awake Skin exam: PRESENT: dry, warm Results Laboratory Results: 10/12/16 04:17 10/12/16 04:17 10/11/16 10/12/16 10/12/16 14:55 04:17 04:17 WBC 7.8 RBC 3.77 Hgb 10.3 L Hct 33.6 L MCV 89 MCH 27.3 MCHC 30.6 L RDW 15.1 H Plt Count 172 Carbonic Acid 2.04 H HCO3/H2CO3 Ratio 19:1 ABG pH 7.38 ABG pCO2 67.7 H ABG pO2 62.4 L ABG HCO3 38.8 H ABG O2 Saturation 90.5 L ABG Base Excess 11.0 FiO2 10L Sodium 141.1 Potassium 5.3 H Chloride 99 Carbon Dioxide 36 H Anion Gap 6 BUN 29 H Creatinine 0.54 Est GFR ( Amer) > 60 Est GFR (Non-Af Amer) > 60 Glucose 131 H Calcium 8.3 L Magnesium 2.2 10/11/16 05:30 NT-Pro-B Natriuret Pep 1750 H Impressions: Chest X-Ray 10/04/16 11:48 IMPRESSION: EXTENSIVE CHRONIC PULMONARY FIBROSIS. PROBABLE SUPERIMPOSED INFILTRATE SECONDARY TO PNEUMONIA IN THE RIGHT UPPER LOBE. POSSIBLE SIMILAR FINDING IN THE LEFT UPPER LOBE. Interventional Vascular Procedure 10/05/16 00:00 IMPRESSION: Placement of left basilic vein PICC. PICC Line Insertion 10/05/16 00:00 IMPRESSION: Placement of left basilic vein PICC. Chest CT 10/11/16 00:00 IMPRESSION: Progression of diffuse lung disease since prior CT chest. There is now ground-glass opacity in the right upper lobe and superior segment right lower lobe, pneumonia versus edema versus pneumonitis. No pleural effusions. Assessment & Plan - Diagnosis (1) Acute on chronic respiratory failure with hypoxia and hypercapnia Is this a current diagnosis for this admission?: YesPlan: Patient has failed BiPAP PCO2 67 PO2 60 The above patient has failed BiPAP. This patient would benefit from noninvasive mechanical ventilation via the trilogy AVAPS/AE and faster responding AVAPS rates. The trilogy is able to provide a target tidal volume and also adjusting the EPAP pressures to maintain a patent airway as well as an oral backup rate this machine will help improve PaCO2 levels. The severity of the patient's condition will lead to future hospitalizations and readmissions as well as life-threatening situations without the use of this device trilogy home vent needed for hypercapnic respiratory failure. Family medical to follow for trilogy set up. (2) Idiopathic pulmonary fibrosis Is this a current diagnosis for this admission?: YesPlan: End-stage disease:Discussed with family as well as PCP per family patient has medical directives should make her DNR. Strong consideration should be given for hospice and palliative care
[2016-10-12] MEDS: LEVOFLOXACIN 750 MG TABLET PO SCH (17:27)
[2016-10-12] MEDS: GUAIFENESIN SYRP 200 MG/10 ML UDC PO PRN (17:29)
[2016-10-13] MEDS: IMIPENEM/CILASTATIN SODIUM 500 MG in NORMAL SALINE 100 ML IV SCH ×4 (00:55→17:39)
[2016-10-13 05:09] LABS: ABSOLUTE LYMPHOCYTES (AUTO) 0.4 10^3/uL (0.5-4.7); ABSOLUTE MONOCYTES (AUTO) 0.3 10^3/uL (0.1-1.4); ABSOLUTE NEUT (AUTO) 7.6 10^3/uL (1.7-8.2); BASOPHILS % (AUTO) 0.5 % (0-2); EOSINOPHILS % (AUTO) 0.1 % (0-6); HEMATOCRIT 33.8 % (36.0-47.0); HEMOGLOBIN 10.4 g/dL (12.0-15.5); HGB HCT DIFFERENCE -2.6; LYMPHOCYTES % (AUTO) 5.3 % (13-45); MEAN CORPUSCULAR HEMOGLOBIN 27.5 pg (27.0-33.4); MEAN CORPUSCULAR HGB CONC 30.9 g/dL (32.0-36.0); MEAN CORPUSCULAR VOLUME 89 fl (80-97); MONOCYTES % (AUTO) 3.4 % (3-13); RED BLOOD COUNT 3.79 10^6/uL (3.72-5.28); RED CELL DISTRIBUTION WIDTH 14.9 % (11.5-14.0); SEGMENTED NEUTROPHILS % (AUTO) 90.7 % (42-78); WHITE BLOOD COUNT 8.4 10^3/uL (4.0-10.5)
[2016-10-13 05:36] LABS: ANION GAP 5 (5-19); BLOOD UREA NITROGEN 28 mg/dL (7-20); CALCIUM 8.3 mg/dL (8.4-10.2); CARBON DIOXIDE 39 mmol/L (22-30); CHLORIDE 95 mmol/L (98-107); CREATININE RESULT 0.57 mg/dL (0.52-1.25); GLUCOSE 140 mg/dL (75-110); MAGNESIUM 2.2 mg/dL (1.6-2.3); POTASSIUM 4.7 mmol/L (3.6-5.0); SODIUM 138.7 mmol/L (137-145)
[2016-10-13] MEDS: TOBRAMYCIN SULFATE NEB 40 MG/ML 30 ML NEB SCH ×2 (07:53→19:42)
[2016-10-13] MEDS: IPRATROPIUM/ALBUTEROL 0.5-2.5 MG/3 ML AMPUL NEB SCH ×3 (07:53→19:42)
[2016-10-13] MEDS: SODIUM CHLORIDE NASAL SPRAY 44 ML NASL SCH ×4 (08:41→21:45)
[2016-10-13] MEDS: ENOXAPARIN SODIUM INJ 40 MG/0.4 ML DISP.SYRIN SUBCUT SCH (09:47)
[2016-10-13] MEDS: METHYLPREDNISOLONE INJ 40 MG/1 ML SDV IV SCH ×2 (09:47→21:44)
[2016-10-13] MEDS: ASPIRIN 81 MG TABLET, ENT COATED PO SCH (09:48)
[2016-10-13] MEDS: FAMOTIDINE 20 MG TABLET PO SCH ×2 (09:48→21:46)
[2016-10-13] MEDS: LACTOBACILLUS ACIDOPHILUS 250 MG TAB PO SCH ×2 (09:48→17:19)
[2016-10-13] MEDS: NORMAL SALINE 10 ML SDV (SCHEDULED) IV SCH ×2 (09:49→21:45)
[2016-10-13 11:51] LABS: HEMATOCRIT 35.9 % (36.0-47.0); HEMOGLOBIN 10.9 g/dL (12.0-15.5); HGB HCT DIFFERENCE -3.2; MEAN CORPUSCULAR HEMOGLOBIN 27.1 pg (27.0-33.4); MEAN CORPUSCULAR HGB CONC 30.4 g/dL (32.0-36.0); MEAN CORPUSCULAR VOLUME 89 fl (80-97); RED BLOOD COUNT 4.03 10^6/uL (3.72-5.28); RED CELL DISTRIBUTION WIDTH 14.7 % (11.5-14.0); WHITE BLOOD COUNT 10.7 10^3/uL (4.0-10.5)
[2016-10-13 12:50] LABS: ARTERIAL BLOOD BASE EXCESS 15.4 mmol/L; ARTERIAL BLOOD O2 SATURATION 95.2 % (94-98)
--- NOTE | 2016-10-13 14:14 | PDOC PROGRESS REPORT ---
Subjective Progress Note for:: 10/13/16 Subjective:: The patient is sitting up in a chair wearing her BiPAP. She has been seen by Dr. Singh today who wants to have the BiPAP on except for when she is eating. The patient however is awake and alert. She answers questions appropriately. She is able to tell me she has no fever chills. She has had no chest pain or heart palpitations. She remains quite short of breath. She has had no nausea, vomiting or diarrhea. She states she is having bowel movements. She is voiding without difficulty. Physical Exam Vital Signs: Temp Pulse Resp BP Pulse Ox 97.9 F 82 36 H 109/67 93 10/13/16 00:27 10/13/16 07:53 10/13/16 07:53 10/13/16 00:27 10/13/16 12:00 Pulse Oximeter Continuous Start: 10/04/16 14: 57 Freq: RTQ4 Status: Active Document 10/13/16 12:00 [facility] (Rec: 10/13/16 12:55 LDA [email or web address]) Pulse Oximetry Assessment Oxygen Saturation (92-100) 93 Oxygen Flow Rate (L/min) 10 Oxygen Delivery Method Nasal Cannula Equipment Usage Equipment in Use Continuous SpO2 Machine # 10 Intake & Output 10/12/16 10/13/16 10/14/16 06:59 06:59 06:59 Intake Total 1114 1310 Output Total 900 4550 Balance 214 -3240 Weight 74.5 kg General appearance: PRESENT: no acute distress, well-developed, well-nourished Head exam: PRESENT: atraumatic, normocephalic Mouth exam: PRESENT: moist, tongue midline Respiratory exam: PRESENT: decreased breath sounds Cardiovascular exam: PRESENT: RRR. ABSENT: diastolic murmur, rubs, systolic murmur GI/Abdominal exam: PRESENT: normal bowel sounds, soft. ABSENT: distended, guarding, mass, organolmegaly, rebound, tenderness Extremities exam: PRESENT: full ROM. ABSENT: calf tenderness, clubbing, pedal edema Neurological exam: PRESENT: alert, awake, oriented to person, oriented to place , oriented to time, oriented to situation, CN II-XII grossly intact. ABSENT: motor sensory deficit Results Laboratory Results: 10/13/16 10:00 10/13/16 04:26 10/13/16 10/13/16 10/13/16 04:26 04:26 10:00 WBC 8.4 10.7 H RBC 3.79 4.03 Hgb 10.4 L 10.9 L Hct 33.8 L 35.9 L MCV 89 89 MCH 27.5 27.1 MCHC 30.9 L 30.4 L RDW 14.9 H 14.7 H Plt Count 183 205 Seg Neutrophils % 90.7 H Lymphocytes % 5.3 L Monocytes % 3.4 Eosinophils % 0.1 Basophils % 0.5 Absolute Neutrophils 7.6 Absolute Lymphocytes 0.4 L Absolute Monocytes 0.3 Absolute Eosinophils 0.0 Absolute Basophils 0.0 Carbonic Acid HCO3/H2CO3 Ratio ABG pH ABG pCO2 ABG pO2 ABG HCO3 ABG O2 Saturation ABG Base Excess FiO2 Sodium 138.7 Potassium 4.7 Chloride 95 L Carbon Dioxide 39 H Anion Gap 5 BUN 28 H Creatinine 0.57 Est GFR ( Amer) > 60 Est GFR (Non-Af Amer) > 60 Glucose 140 H Calcium 8.3 L Magnesium 2.2 10/13/16 11:15 WBC RBC Hgb Hct MCV MCH MCHC RDW Plt Count Seg Neutrophils % Lymphocytes % Monocytes % Eosinophils % Basophils % Absolute Neutrophils Absolute Lymphocytes Absolute Monocytes Absolute Eosinophils Absolute Basophils Carbonic Acid 2.01 H HCO3/H2CO3 Ratio 21:1 ABG pH 7.42 ABG pCO2 66.9 H ABG pO2 77.6 L ABG HCO3 42.6 H ABG O2 Saturation 95.2 ABG Base Excess 15.4 FiO2 40% Sodium Potassium Chloride Carbon Dioxide Anion Gap BUN Creatinine Est GFR ( Amer) Est GFR (Non-Af Amer) Glucose Calcium Magnesium 10/11/16 10/13/16 05:30 04:26 NT-Pro-B Natriuret Pep 1750 H 714 Impressions: Chest X-Ray 10/04/16 11:48 IMPRESSION: EXTENSIVE CHRONIC PULMONARY FIBROSIS. PROBABLE SUPERIMPOSED INFILTRATE SECONDARY TO PNEUMONIA IN THE RIGHT UPPER LOBE. POSSIBLE SIMILAR FINDING IN THE LEFT UPPER LOBE. Interventional Vascular Procedure 10/05/16 00:00 IMPRESSION: Placement of left basilic vein PICC. PICC Line Insertion 10/05/16 00:00 IMPRESSION: Placement of left basilic vein PICC. Chest CT 10/11/16 00:00 IMPRESSION: Progression of diffuse lung disease since prior CT chest. There is now ground-glass opacity in the right upper lobe and superior segment right lower lobe, pneumonia versus edema versus pneumonitis. No pleural effusions. Assessment & Plan - Diagnosis (1) Acute on chronic respiratory failure with hypoxia and hypercapnia Is this a current diagnosis for this admission?: YesPlan: At this point Dr. Singh has her on BiPAP. He is trying to get her qualified for a trilogy machine. Certainly her respiratory status does not seem to be getting much better. We will defer to Dr. Singh for further recommendations. (2) Idiopathic pulmonary fibrosis Is this a current diagnosis for this admission?: YesPlan: The patient has end-stage disease. Pulmonology is following and we certainly appreciate their input. Currently efforts are being made to obtain a trilogy machine for the patient. (3) Pneumonia Qualifiers: Pneumonia type: due to unspecified organism Laterality: right Lung location: upper lobe of lung Qualified Code(s): J18.1 - Lobar pneumonia, unspecified organism Is this a current diagnosis for this admission?: YesPlan: She has Pseudomonas growing in her sputum. Continue imipenem for now. She also is on tobramycin nebulizer treatments - Time Disposition: Inpatient hospitalization remains necessary. The patient is requiring BiPAP support, high flow oxygen as well as parenteral therapies. Her prognosis is quite guarded in a transition to a palliative care approach is recommended. Probably the best disposition for this patient would be hospice. Unfortunately her and her family are not ready for that at this point. Timing of disposition will be determined by her clinical course.
--- NOTE | 2016-10-13 14:59 | PDOC PROGRESS REPORT ---
Subjective Progress Note for:: 10/13/16 Subjective:: Awake Physical Exam Vital Signs: Temp Pulse Resp BP Pulse Ox 97.9 F 99 32 H 109/67 98 10/13/16 00:27 10/13/16 02:00 10/13/16 04:00 10/13/16 00:27 10/13/16 04:00 Pulse Oximeter Continuous Start: 10/04/16 14: 57 Freq: RTQ4 Status: Active Document 10/13/16 04:00 [facility] (Rec: 10/13/16 04:38 SFL [email or web address]) Pulse Oximetry Assessment Oxygen Saturation (92-100) 97 Oxygen Delivery Method Bi-pap Fraction of Inspired Oxygen (FIO2) 60 Equipment Usage Equipment in Use Continuous SpO2 Machine # 10 Intake & Output 10/12/16 10/13/16 10/14/16 06:59 06:59 06:59 Intake Total 1114 1310 Output Total 900 4550 Balance 214 -3240 Weight 74.5 kg General appearance: PRESENT: cooperative, disheveled, mild distress, well- developed Head exam: PRESENT: atraumatic, normocephalic Eye exam: PRESENT: conjunctiva pale, EOMI Mouth exam: PRESENT: dry mucosa, neck supple, tongue midline Neck exam: ABSENT: carotid bruit, JVD, lymphadenopathy, thyromegaly Respiratory exam: PRESENT: decreased breath sounds, prolonged expiratory phas, rales, rhonchi, symmetrical, wheezes Cardiovascular exam: PRESENT: RRR, +S1, +S2 Pulses: PRESENT: normal radial pulses GI/Abdominal exam: PRESENT: normal bowel sounds, soft. ABSENT: distended, guarding, mass, organolmegaly, rebound, tenderness Rectal exam: PRESENT: deferred Musculoskeletal exam: PRESENT: normal inspection Neurological exam: PRESENT: awake Skin exam: PRESENT: dry, warm Results Laboratory Results: 10/13/16 04:26 10/13/16 04:26 10/13/16 10/13/16 04:26 04:26 WBC 8.4 RBC 3.79 Hgb 10.4 L Hct 33.8 L MCV 89 MCH 27.5 MCHC 30.9 L RDW 14.9 H Plt Count 183 Seg Neutrophils % 90.7 H Lymphocytes % 5.3 L Monocytes % 3.4 Eosinophils % 0.1 Basophils % 0.5 Absolute Neutrophils 7.6 Absolute Lymphocytes 0.4 L Absolute Monocytes 0.3 Absolute Eosinophils 0.0 Absolute Basophils 0.0 Sodium 138.7 Potassium 4.7 Chloride 95 L Carbon Dioxide 39 H Anion Gap 5 BUN 28 H Creatinine 0.57 Est GFR ( Amer) > 60 Est GFR (Non-Af Amer) > 60 Glucose 140 H Calcium 8.3 L Magnesium 2.2 10/11/16 05:30 NT-Pro-B Natriuret Pep 1750 H Impressions: Chest X-Ray 10/04/16 11:48 IMPRESSION: EXTENSIVE CHRONIC PULMONARY FIBROSIS. PROBABLE SUPERIMPOSED INFILTRATE SECONDARY TO PNEUMONIA IN THE RIGHT UPPER LOBE. POSSIBLE SIMILAR FINDING IN THE LEFT UPPER LOBE. Interventional Vascular Procedure 10/05/16 00:00 IMPRESSION: Placement of left basilic vein PICC. PICC Line Insertion 10/05/16 00:00 IMPRESSION: Placement of left basilic vein PICC. Chest CT 10/11/16 00:00 IMPRESSION: Progression of diffuse lung disease since prior CT chest. There is now ground-glass opacity in the right upper lobe and superior segment right lower lobe, pneumonia versus edema versus pneumonitis. No pleural effusions. Assessment & Plan - Diagnosis (1) Acute on chronic respiratory failure with hypoxia and hypercapnia Is this a current diagnosis for this admission?: YesPlan: Repeat ABG today confirms BiPAP failure The above patient has failed BiPAP. This patient would benefit from noninvasive mechanical ventilation via the trilogy AVAPS/AE and faster responding AVAPS rates. The trilogy is able to provide a target tidal volume and also adjusting the EPAP pressures to maintain a patent airway as well as an oral backup rate this machine will help improve PaCO2 levels. The severity of the patient's condition will lead to future hospitalizations and readmissions as well as life-threatening situations without the use of this device trilogy home vent needed for hypercapnic respiratory failure. Family medical to follow for trilogy set up. (2) Idiopathic pulmonary fibrosis Is this a current diagnosis for this admission?: YesPlan: End-stage disease:Discussed with family as well as PCP per family patient has medical directives should make her DNR. Strong consideration should be given for hospice and palliative care
--- NOTE | 2016-10-13 15:54 | Palliative Consultation Report ---
Consultation From:: JENIFFER WELCH Consult Reason: acute/chronic hypoxic/hypercapnic resp failure - HPI HPI: Appreciate Pallitive care consult for this 71 year old woman who has been admitted with pneumonia and has required Bipap since administration to maintain Oxygen levels. Mrs. Gloria has had COPD for many years and uses oxygen per nasal cannula at home. She has never had CPAP or BIPAP at home before and is agreeable to using it a home after discharge if needed. SHe states she is feeling better now and is sitting up in chair using nasal cannula while drinking a soda. She is not having labored breathing and doesn't appear to be using accessory muscles at this time. Patients brother, and a friend are visiting. Brother has many questions about palliative care, but most of his questions relate to home health services and what help she can get to bring food to her home. We discussed symptom management but she reports her only pain is in her right knee with movement. SHe was hoping to get knee replacement, but with this pneumonia, she knows that will be postponed. Patient has named her brother to be her HCPOA and they state that the legal documents are completed and registered with the state for that. She is already a DNR so I did not discuss advance directives further. Mrs. Gloria lives at home, alone. She is wanting to have physical therapy at home to help her recondition to independence. We talked about the possibilty of need for BIPAP at home and briefly discussed the Trilogy machine. We talked about PT, nursing and home health aides from home health to assist her. But brother did have concerns about how she is to get food, so I assume he doesnt see her daily. Patient had no other symptoms or concerns at this time. Brother wanted to make sure I was not there representing hospice and needed to be reassured of that several times. So I did not introduce the possibility of hospice support at this time. If she does not improve greatly, that may be a needed discussion next week. No acute needs identified from a symptom management perspective. Onset: Just prior to arrival Onset/Duration: Gradual Quality of Pain: Dull Severity: Mild Pain Level: 2 Associated Symptoms: Shortness of breath Exacerbated by: Movement, Walking Relieved by: Remaining still - pain only in Right knee Past Medical History(Consults) - General Information Source: Patient, Relative, [facility] Records Home Medications: Albuterol Sulfate [Proair HFA] 2 puff IH Q4 PRN 10/04/16 Amlodipine Besylate/Benazepril [Amlodipine-Benazepril 10-20 mg] 1 cap PO DAILY 10/04/16 Aspirin [Aspirin EC] 81 mg PO DAILY 10/04/16 Budesonide/Formoterol Fumarate [Symbicort Hfa 160-4.5 Mcg Inhaler 6 gm] 1 puff IH Q12 10/06/16 Allergies/Adverse Reactions: Penicillins Allergy (Verified 08/30/16 12:17) Swelling Shellfish * [Shellfish] Allergy (Verified 08/30/16 12:17) Passed out, Unsure - Social History Lives with: Alone Family History: Reviewed & Not Pertinent - to current illness Parental Family History Reviewed: No Children Family History Reviewed: No Sibling(s) Family History Reviewed.: No Smoking Status: Current Every Day Smoker Cigarettes Packs Per Day: 0.5 Number of Years Smokin Last Time Smoked: 10-01-16 Frequency of Alcohol Use: None Hx Recreational Drug Use: No Hx Prescription Drug Abuse: No - Past Medical History Cardiac Medical History: Reports: Hx Hypertension Denies: Hx Atrial Fibrillation, Hx Congestive Heart Failure, Hx Coronary Artery Disease, Hx Heart Attack, Hx Hypercholesterolemia, Hx Peripheral Vascular Disease, Hx Pulmonary Embolism, Hx Heart Murmur Pulmonary Medical History: Reports: Hx Bronchitis, Hx COPD, Hx Pneumonia Denies: Hx Asthma, Hx Respiratory Failure, Hx Sleep Apnea, Hx Tuberculosis Renal/ Medical History: Denies: Hx Ovarian Cysts, Hx Pelvic Inflammatory Disease Malignancy Medical History: Denies: Hx Breast Cancer, Hx Cervical Cancer, Hx Lung Cancer, Hx Ovarian Cancer Musculoskeltal Medical History: Reports Hx Arthritis, Denies Hx Fibromyalgia, Denies Hx Muscular Dystrophy Psychiatric Medical History: Denies: Hx Depression Traumatic Medical History: Denies: Hx Fractures - Surgical History Past Surgical History: Reports: Hx Tonsillectomy. Denies: Hx Appendectomy, Hx Bowel Surgery, Hx Section, Hx Cholecystectomy, Hx Coronary Artery Bypass Graft, Hx Gastric Bypass Surgery, Hx Herniorrhaphy, Hx Hysterectomy, Hx Mastectomy, Hx Tubal Ligation Review of systems Constitutional: Weakness EENT: Nose pain Cardiovascular: No symptoms reported Respiratory: Cough, Short of breath Gastrointestinal: No symptoms reported Geniturinary: No symptoms reported Female Genitourinary: No symptoms reported Musculoskeltal: No symptoms reported Skin: No symptoms reported Hematologic/Lymphatic: No symptoms reported Neurological/Psychological: Weakness Ojective:Exam Vital Signs: Temp Pulse Resp BP Pulse Ox 97.9 F 85 24 H 109/67 95 10/13/16 00:27 10/13/16 14:43 10/13/16 14:43 10/13/16 00:27 10/13/16 14:43 Pulse Oximeter Continuous Start: 10/04/16 14: 57 Freq: RTQ4 Status: Active Document 10/13/16 12:00 LDA (Rec: 10/13/16 12:55 LDA [email or web address]) Pulse Oximetry Assessment Oxygen Saturation (92-100) 93 Oxygen Flow Rate (L/min) 10 Oxygen Delivery Method Nasal Cannula Equipment Usage Equipment in Use Continuous SpO2 Machine # 10 Intake & Output 10/12/16 10/13/16 10/14/16 06:59 06:59 06:59 Intake Total 1114 1310 Output Total 900 4550 Balance 214 -3240 Weight 74.5 kg - General General Appearance: Alert In distress: None - Alert, oriented, speech without dyspnea. - Neck Neck: Normal - Respiratory Respiratory Status: No respiratory distress Chest Status: Pain with deep breathing Breath sounds: Rhonchi - Cardiovascular Rhythm: Regular Pulses: Normal: Radial - Neurological Cognition: Normal Orientation: Alert, Oriented to person, Oriented to place, Oriented to time Speech: Normal Cranial nerves: Normal - Psychological Associated symptoms: Normal affect, Normal mood Objective-Diagnostic Laboratory: 10/13/16 10:00 10/13/16 04:26 10/13/16 10/13/16 10/13/16 04:26 04:26 10:00 WBC 8.4 10.7 H RBC 3.79 4.03 Hgb 10.4 L 10.9 L Hct 33.8 L 35.9 L MCV 89 89 MCH 27.5 27.1 MCHC 30.9 L 30.4 L RDW 14.9 H 14.7 H Plt Count 183 205 Seg Neutrophils % 90.7 H Lymphocytes % 5.3 L Monocytes % 3.4 Eosinophils % 0.1 Basophils % 0.5 Absolute Neutrophils 7.6 Absolute Lymphocytes 0.4 L Absolute Monocytes 0.3 Absolute Eosinophils 0.0 Absolute Basophils 0.0 Carbonic Acid HCO3/H2CO3 Ratio ABG pH ABG pCO2 ABG pO2 ABG HCO3 ABG O2 Saturation ABG Base Excess FiO2 Sodium 138.7 Potassium 4.7 Chloride 95 L Carbon Dioxide 39 H Anion Gap 5 BUN 28 H Creatinine 0.57 Est GFR ( Amer) > 60 Est GFR (Non-Af Amer) > 60 Glucose 140 H Calcium 8.3 L Magnesium 2.2 10/13/16 11:15 WBC RBC Hgb Hct MCV MCH MCHC RDW Plt Count Seg Neutrophils % Lymphocytes % Monocytes % Eosinophils % Basophils % Absolute Neutrophils Absolute Lymphocytes Absolute Monocytes Absolute Eosinophils Absolute Basophils Carbonic Acid 2.01 H HCO3/H2CO3 Ratio 21:1 ABG pH 7.42 ABG pCO2 66.9 H ABG pO2 77.6 L ABG HCO3 42.6 H ABG O2 Saturation 95.2 ABG Base Excess 15.4 FiO2 40% Sodium Potassium Chloride Carbon Dioxide Anion Gap BUN Creatinine Est GFR ( Amer) Est GFR (Non-Af Amer) Glucose Calcium Magnesium 10/11/16 10/13/16 05:30 04:26 NT-Pro-B Natriuret Pep 1750 H 714 Plan and Recommendation Plan and Recommendation: As above, answered questions about care at home, needs and symptoms. Discussed advance care planning in relation to HCPOA only. Answered questions of patient and her brother. No symptoms to manage at this time, patient states she feels much improved with ehr breathing and only pain is from her right knee on movement. Will follow as hospitalization continues. I gave her brother my cell phone number in case he has questions or concerns later. - Time Spent with Patient Time spent with patient: 15 to 30 Minutes Time: 25 min with patient, 15 min chart review and consultation Greater then 50% spent on Counseling & Coordination of Care: 15 min care coordination questions and concerns
[2016-10-13] MEDS: LEVOFLOXACIN 750 MG TABLET PO SCH (17:20)
[2016-10-14] MEDS: IMIPENEM/CILASTATIN SODIUM 500 MG in NORMAL SALINE 100 ML IV SCH ×4 (00:45→18:33)
[2016-10-14 05:22] LABS: ANION GAP 5 (5-19); BLOOD UREA NITROGEN 30 mg/dL (7-20); CALCIUM 8.4 mg/dL (8.4-10.2); CARBON DIOXIDE 37 mmol/L (22-30); CHLORIDE 97 mmol/L (98-107); CREATININE RESULT 0.63 mg/dL (0.52-1.25); GLUCOSE 141 mg/dL (75-110); MAGNESIUM 2.3 mg/dL (1.6-2.3); POTASSIUM 4.9 mmol/L (3.6-5.0); SODIUM 139.2 mmol/L (137-145)
[2016-10-14] MEDS: METHYLPREDNISOLONE INJ 40 MG/1 ML SDV IV SCH ×2 (09:14→22:20)
[2016-10-14] MEDS: ENOXAPARIN SODIUM INJ 40 MG/0.4 ML DISP.SYRIN SUBCUT SCH (09:15)
[2016-10-14] MEDS: NORMAL SALINE 10 ML SDV (SCHEDULED) IV SCH ×2 (09:15→22:20)
[2016-10-14] MEDS: LACTOBACILLUS ACIDOPHILUS 250 MG TAB PO SCH ×2 (09:15→18:33)
[2016-10-14] MEDS: TOBRAMYCIN SULFATE NEB 40 MG/ML 30 ML NEB SCH ×2 (09:16→19:51)
[2016-10-14] MEDS: ASPIRIN 81 MG TABLET, ENT COATED PO SCH (09:16)
[2016-10-14] MEDS: FAMOTIDINE 20 MG TABLET PO SCH ×2 (09:16→22:17)
[2016-10-14] MEDS: SODIUM CHLORIDE NASAL SPRAY 44 ML NASL SCH ×4 (09:16→22:25)
[2016-10-14] MEDS: IPRATROPIUM/ALBUTEROL 0.5-2.5 MG/3 ML AMPUL NEB SCH ×3 (09:16→19:51)
[2016-10-14 10:28] LABS: ABSOLUTE LYMPHOCYTES (AUTO) 1.3 10^3/uL (0.5-4.7); ABSOLUTE MONOCYTES (AUTO) 0.8 10^3/uL (0.1-1.4); ABSOLUTE NEUT (AUTO) 9.5 10^3/uL (1.7-8.2); BASOPHILS % (AUTO) 0.1 % (0-2); HEMATOCRIT 35.2 % (36.0-47.0); HEMOGLOBIN 10.8 g/dL (12.0-15.5); HGB HCT DIFFERENCE -2.8; LYMPHOCYTES % (AUTO) 11.6 % (13-45); MEAN CORPUSCULAR HEMOGLOBIN 26.9 pg (27.0-33.4); MEAN CORPUSCULAR HGB CONC 30.8 g/dL (32.0-36.0); MEAN CORPUSCULAR VOLUME 87 fl (80-97); MONOCYTES % (AUTO) 6.5 % (3-13); RED BLOOD COUNT 4.02 10^6/uL (3.72-5.28); RED CELL DISTRIBUTION WIDTH 14.9 % (11.5-14.0); SEGMENTED NEUTROPHILS % (AUTO) 81.8 % (42-78); WHITE BLOOD COUNT 11.6 10^3/uL (4.0-10.5)
[2016-10-14 10:43] LABS: BLOOD UREA NITROGEN 26 mg/dL (7-20); CALCIUM 8.5 mg/dL (8.4-10.2); CHLORIDE 96 mmol/L (98-107); CREATININE RESULT 0.59 mg/dL (0.52-1.25); GLUCOSE 96 mg/dL (75-110); MAGNESIUM 2.4 mg/dL (1.6-2.3); POTASSIUM 4.2 mmol/L (3.6-5.0); SODIUM 140.7 mmol/L (137-145)
[2016-10-14 10:50] LABS: ANION GAP 7 (5-19)
[2016-10-14 10:56] LABS: CARBON DIOXIDE 38 mmol/L (22-30)
--- NOTE | 2016-10-14 15:26 | PDOC PROGRESS REPORT ---
Subjective Progress Note for:: 10/14/16 Physical Exam Vital Signs: Temp Pulse Resp BP Pulse Ox 98.4 F 92 29 H 114/69 97 10/14/16 12:10 10/14/16 14:16 10/14/16 14:16 10/14/16 12:10 10/14/16 14:16 Pulse Oximeter Continuous Start: 10/04/16 14: 57 Freq: RTQ4 Status: Active Document 10/14/16 12:00 HCR (Rec: 10/14/16 12:40 HCR [email or web address]) Pulse Oximetry Assessment Oxygen Saturation (92-100) 95 Oxygen Delivery Method Bi-pap Fraction of Inspired Oxygen (FIO2) 21 Equipment Usage Equipment in Use Continuous SpO2 Machine # 10 Intake & Output 10/13/16 10/14/16 10/15/16 06:59 06:59 06:59 Intake Total 1310 600 237 Output Total 4550 700 Balance -3240 -100 237 Weight 74.4 kg Results Laboratory Results: 10/14/16 09:30 10/14/16 09:30 10/14/16 10/14/16 10/14/16 04:06 09:30 09:30 WBC 11.6 H RBC 4.02 Hgb 10.8 L Hct 35.2 L MCV 87 MCH 26.9 L MCHC 30.8 L RDW 14.9 H Plt Count 221 Seg Neutrophils % 81.8 H Lymphocytes % 11.6 L Monocytes % 6.5 Eosinophils % 0.0 Basophils % 0.1 Absolute Neutrophils 9.5 H Absolute Lymphocytes 1.3 Absolute Monocytes 0.8 Absolute Eosinophils 0.0 Absolute Basophils 0.0 Sodium 139.2 140.7 Potassium 4.9 4.2 Chloride 97 L 96 L Carbon Dioxide 37 H 38 H Anion Gap 5 7 BUN 30 H 26 H Creatinine 0.63 0.59 Est GFR ( Amer) > 60 > 60 Est GFR (Non-Af Amer) > 60 > 60 Glucose 141 H 96 Calcium 8.4 8.5 Magnesium 2.3 2.4 H 10/11/16 10/13/16 05:30 04:26 NT-Pro-B Natriuret Pep 1750 H 714 Impressions: Chest X-Ray 10/04/16 11:48 IMPRESSION: EXTENSIVE CHRONIC PULMONARY FIBROSIS. PROBABLE SUPERIMPOSED INFILTRATE SECONDARY TO PNEUMONIA IN THE RIGHT UPPER LOBE. POSSIBLE SIMILAR FINDING IN THE LEFT UPPER LOBE. Interventional Vascular Procedure 10/05/16 00:00 IMPRESSION: Placement of left basilic vein PICC. PICC Line Insertion 10/05/16 00:00 IMPRESSION: Placement of left basilic vein PICC. Chest CT 10/11/16 00:00 IMPRESSION: Progression of diffuse lung disease since prior CT chest. There is now ground-glass opacity in the right upper lobe and superior segment right lower lobe, pneumonia versus edema versus pneumonitis. No pleural effusions. Assessment & Plan - Diagnosis (1) Acute on chronic respiratory failure with hypoxia and hypercapnia Is this a current diagnosis for this admission?: Yes (2) Idiopathic pulmonary fibrosis Is this a current diagnosis for this admission?: Yes
--- NOTE | 2016-10-14 15:42 | PDOC PROGRESS REPORT ---
Subjective Progress Note for:: 10/14/16 Subjective:: The patient is sitting in a chair. She does not have her BiPAP on this morning as she is eating and she is doing quite well. She denies fever chills overnight. She states her shortness of breath is just about the same. She continues to have a cough but she is unable to bring up any sputum. She has had no chest discomfort or heart palpitations. She is tolerating her diet and eating well. No nausea, vomiting or diarrhea. No dysuria, frequency or hematuria. Physical Exam Vital Signs: Temp Pulse Resp BP Pulse Ox 98.4 F 92 29 H 114/69 97 10/14/16 12:10 10/14/16 14:16 10/14/16 14:16 10/14/16 12:10 10/14/16 14:16 Pulse Oximeter Continuous Start: 10/04/16 14: 57 Freq: RTQ4 Status: Active Document 10/14/16 12:00 HCR (Rec: 10/14/16 12:40 HCR [email or web address]) Pulse Oximetry Assessment Oxygen Saturation (92-100) 95 Oxygen Delivery Method Bi-pap Fraction of Inspired Oxygen (FIO2) 21 Equipment Usage Equipment in Use Continuous SpO2 Machine # 10 Intake & Output 10/13/16 10/14/16 10/15/16 06:59 06:59 06:59 Intake Total 1310 600 237 Output Total 4550 700 Balance -3240 -100 237 Weight 74.4 kg General appearance: PRESENT: no acute distress, thin, other - She has conversational dyspnea Head exam: PRESENT: atraumatic, normocephalic Mouth exam: PRESENT: moist, tongue midline Respiratory exam: PRESENT: decreased breath sounds Cardiovascular exam: PRESENT: RRR. ABSENT: diastolic murmur, rubs, systolic murmur GI/Abdominal exam: PRESENT: normal bowel sounds, soft. ABSENT: distended, guarding, mass, organolmegaly, rebound, tenderness Extremities exam: PRESENT: full ROM. ABSENT: calf tenderness, clubbing, pedal edema Neurological exam: PRESENT: alert, awake, oriented to person, oriented to place , oriented to time, oriented to situation, CN II-XII grossly intact. ABSENT: motor sensory deficit Psychiatric exam: PRESENT: appropriate affect, normal mood. ABSENT: homicidal ideation, suicidal ideation Skin exam: PRESENT: dry, intact, warm. ABSENT: cyanosis, rash Results Laboratory Results: 10/14/16 09:30 10/14/16 09:30 10/14/16 10/14/16 10/14/16 04:06 09:30 09:30 WBC 11.6 H RBC 4.02 Hgb 10.8 L Hct 35.2 L MCV 87 MCH 26.9 L MCHC 30.8 L RDW 14.9 H Plt Count 221 Seg Neutrophils % 81.8 H Lymphocytes % 11.6 L Monocytes % 6.5 Eosinophils % 0.0 Basophils % 0.1 Absolute Neutrophils 9.5 H Absolute Lymphocytes 1.3 Absolute Monocytes 0.8 Absolute Eosinophils 0.0 Absolute Basophils 0.0 Sodium 139.2 140.7 Potassium 4.9 4.2 Chloride 97 L 96 L Carbon Dioxide 37 H 38 H Anion Gap 5 7 BUN 30 H 26 H Creatinine 0.63 0.59 Est GFR ( Amer) > 60 > 60 Est GFR (Non-Af Amer) > 60 > 60 Glucose 141 H 96 Calcium 8.4 8.5 Magnesium 2.3 2.4 H 10/11/16 10/13/16 05:30 04:26 NT-Pro-B Natriuret Pep 1750 H 714 Impressions: Chest X-Ray 10/04/16 11:48 IMPRESSION: EXTENSIVE CHRONIC PULMONARY FIBROSIS. PROBABLE SUPERIMPOSED INFILTRATE SECONDARY TO PNEUMONIA IN THE RIGHT UPPER LOBE. POSSIBLE SIMILAR FINDING IN THE LEFT UPPER LOBE. Interventional Vascular Procedure 10/05/16 00:00 IMPRESSION: Placement of left basilic vein PICC. PICC Line Insertion 10/05/16 00:00 IMPRESSION: Placement of left basilic vein PICC. Chest CT 10/11/16 00:00 IMPRESSION: Progression of diffuse lung disease since prior CT chest. There is now ground-glass opacity in the right upper lobe and superior segment right lower lobe, pneumonia versus edema versus pneumonitis. No pleural effusions. Assessment & Plan - Diagnosis (1) Acute on chronic respiratory failure with hypoxia and hypercapnia Is this a current diagnosis for this admission?: YesPlan: Dr. Singh is following and we certainly appreciate his input. Plan of care per pulmonology. At this point he is recommending she stay on BiPAP and efforts are being made to get her a trilogy machine. We will see how she does and responds over the next couple of days and make further decisions. Hospice has been discussed with the family and they are aware that she is getting to that point. We are hoping to get her well enough to go home for a while before that becomes necessary. The patient herself is not quite there yet. (2) Idiopathic pulmonary fibrosis Is this a current diagnosis for this admission?: YesPlan: Worsening per radiology report from most recent CT scan performed during this hospitalization. (3) Pneumonia Qualifiers: Pneumonia type: due to unspecified organism Laterality: right Lung location: upper lobe of lung Qualified Code(s): J18.1 - Lobar pneumonia, unspecified organism Is this a current diagnosis for this admission?: YesPlan: She has Pseudomonas growing in her sputum. Continue imipenem for now. She also is on tobramycin nebulizer treatments (4) Hyperkalemia Plan: Her level has normalized. She will have a chemistry panel drawn in the morning. (5) Do not resuscitate Plan: Discussions have been had with the patient's brother who is her healthcare power of energy attorney and with the patient herself. The patient would not want to be intubated for a prolonged period of time. Due to the severity of her worsening end-stage pulmonary fibrosis she would never come off the ventilator. The decision was made to change her CODE STATUS to DO NOT RESUSCITATE. We are not going to perform chest compressions or intubate the patient. However the patient would want aggressive care with BiPAP trilogy support, pressors and aggressive treatment with antibiotics or fluids if necessary. - Time Time Spent with patient: 15-24 minutes Disposition: Inpatient hospitalization remains necessary. The patient's prognosis is quite guarded. Hopefully she will improve enough to go home with some quality of life. Recommendation is to get hospice involved with the patient herself is not quite there yet.
[2016-10-15] MEDS: NORMAL SALINE 10 ML SDV (AFTER EACH USE) IV PRN ×2 (01:08→21:34)
[2016-10-15] MEDS: IMIPENEM/CILASTATIN SODIUM 500 MG in NORMAL SALINE 100 ML IV SCH ×5 (01:09→23:36)
[2016-10-15] MEDS: ACETAMINOPHEN 325 MG TABLET PO PRN (01:15)
[2016-10-15 05:42] LABS: ABSOLUTE LYMPHOCYTES (AUTO) 0.7 10^3/uL (0.5-4.7); ABSOLUTE MONOCYTES (AUTO) 0.2 10^3/uL (0.1-1.4); BASOPHILS % (AUTO) 0.2 % (0-2); HEMATOCRIT 33.8 % (36.0-47.0); HEMOGLOBIN 10.3 g/dL (12.0-15.5); HGB HCT DIFFERENCE -2.9; LYMPHOCYTES % (AUTO) 6.5 % (13-45); MEAN CORPUSCULAR HEMOGLOBIN 27.4 pg (27.0-33.4); MEAN CORPUSCULAR HGB CONC 30.5 g/dL (32.0-36.0); MEAN CORPUSCULAR VOLUME 90 fl (80-97); MONOCYTES % (AUTO) 2.2 % (3-13); RED BLOOD COUNT 3.76 10^6/uL (3.72-5.28); RED CELL DISTRIBUTION WIDTH 15.1 % (11.5-14.0); SEGMENTED NEUTROPHILS % (AUTO) 91.1 % (42-78)
[2016-10-15 05:54] LABS: BLOOD UREA NITROGEN 31 mg/dL (7-20); CALCIUM 8.1 mg/dL (8.4-10.2); CREATININE RESULT 0.55 mg/dL (0.52-1.25); GLUCOSE 132 mg/dL (75-110); MAGNESIUM 2.3 mg/dL (1.6-2.3); POTASSIUM 4.9 mmol/L (3.6-5.0)
[2016-10-15 06:11] LABS: ANION GAP 4 (5-19); CARBON DIOXIDE 36 mmol/L (22-30); CHLORIDE 99 mmol/L (98-107); SODIUM 139.1 mmol/L (137-145)
[2016-10-15] MEDS: IPRATROPIUM/ALBUTEROL 0.5-2.5 MG/3 ML AMPUL NEB SCH ×3 (07:54→19:56)
[2016-10-15] MEDS: TOBRAMYCIN SULFATE NEB 40 MG/ML 30 ML NEB SCH ×2 (07:54→19:57)
[2016-10-15] MEDS: ASPIRIN 81 MG TABLET, ENT COATED PO SCH (09:18)
[2016-10-15] MEDS: FAMOTIDINE 20 MG TABLET PO SCH ×2 (09:18→21:33)
[2016-10-15] MEDS: LACTOBACILLUS ACIDOPHILUS 250 MG TAB PO SCH ×2 (09:18→18:42)
[2016-10-15] MEDS: ENOXAPARIN SODIUM INJ 40 MG/0.4 ML DISP.SYRIN SUBCUT SCH (09:19)
[2016-10-15] MEDS: NORMAL SALINE 10 ML SDV (SCHEDULED) IV SCH ×2 (09:20→21:34)
[2016-10-15] MEDS: SODIUM CHLORIDE NASAL SPRAY 44 ML NASL SCH ×4 (09:20→23:35)
[2016-10-15] MEDS: METHYLPREDNISOLONE INJ 40 MG/1 ML SDV IV SCH ×2 (09:20→21:32)
--- NOTE | 2016-10-15 09:39 | PDOC PROGRESS REPORT ---
Subjective Subjective:: The patient is a pleasant but unfortunate 71-year-old -[place] female with oxygen dependent COPD. Prior to this hospitalization she was on 3 L of oxygen at home at baseline. She follows with Dr. Guerrero Kramer, casting trucker in [place], [place]. Most recent records from his office are on the chart. She presented to the emergency room with a several day history of worsening shortness of breath and dyspnea. At the time of admission she had acute on chronic hypoxic and hypercapnic respiratory failure. She had evidence of a probable right upper lobe pneumonia and she was treated with BiPAP. Later she was weaned off BiPAP but remained on 15 L of high flow oxygen. Unfortunately the patient has been quite slow to improve. She was found to have Pseudomonas growing in her sputum. At this point it is unclear whether this is a true infection versus colonization but currently she is receiving an imipenem and tobramycin nebulizer treatments. She has been receiving steroids as well as 1 dose of IV Lasix. Dr. Singh is now following and he is making efforts to get the patient a trilogy machine going forward. Dr. Singh has recommended she stay on BiPAP around the clock except for when she is eating and she is been doing this for the past 2 days with some improvement. Long discussions have been had with the patient as well as her family. Her brother lives in [place] and is her healthcare power of mergers and acquisitions attorney. His name is Basilio Gonzalez . He went back to [place] yesterday but would appreciate updates on the patient. The patient had a repeat CT scan that was compared to her most recent scan from Dr. Kramer's office. It shows worsening of her pulmonary fibrosis which is now considered end-stage. She also has evidence of possible pneumonia as well. The patient truly is a candidate for home hospice. The patient's brother does understand that she may be heading in that direction but the patient herself is not quite there yet. We did change her CODE STATUS to a DO NOT RESUSCITATE as the patient indicated that she would not want prolonged ventilation and at this point her lung function is so poor that she would likely never come off of the ventilator. The patient's brother did agree to this. When I saw the patient this morning she had just taken off her BiPAP to eat breakfast. She ate her entire tray with good appetite. She states she is still short of breath with only minimal activity. She has a cough but is unable to bring up any sputum. She has had no fever or chills. She has had no nausea, vomiting or diarrhea. No dysuria, frequency or hematuria. Physical Exam Vital Signs: Temp Pulse Resp BP Pulse Ox 97.7 F 96 20 118/71 96 10/15/16 07:15 10/15/16 07:56 10/15/16 07:56 10/15/16 07:15 10/15/16 07:56 Pulse Oximeter Continuous Start: 10/04/16 14: 57 Freq: RTQ4 Status: Active Document 10/15/16 07:56 JDR (Rec: 10/15/16 07:59 [email or web address] [email or web address]) Pulse Oximetry Assessment Oxygen Saturation (92-100) 96 Oxygen Delivery Method Bi-pap Fraction of Inspired Oxygen (FIO2) 30 Equipment Usage Equipment in Use Continuous SpO2 Machine # 10 Intake & Output 10/14/16 10/15/16 10/16/16 06:59 06:59 06:59 Intake Total 600 1851 Output Total 700 Balance -100 1851 Weight 74.4 kg 74.1 kg General appearance: PRESENT: no acute distress, well-developed, well-nourished, other - She has conversational dyspnea Head exam: PRESENT: atraumatic, normocephalic Respiratory exam: PRESENT: clear to auscultation jorge, decreased breath sounds - She has significantly decreased breath sounds.. ABSENT: rales, rhonchi, wheezes Cardiovascular exam: PRESENT: RRR. ABSENT: diastolic murmur, rubs, systolic murmur GI/Abdominal exam: PRESENT: normal bowel sounds, soft. ABSENT: distended, guarding, mass, organolmegaly, rebound, tenderness Extremities exam: PRESENT: full ROM. ABSENT: calf tenderness, clubbing, pedal edema Neurological exam: PRESENT: alert, awake, oriented to person, oriented to place , oriented to time, oriented to situation, CN II-XII grossly intact. ABSENT: motor sensory deficit Psychiatric exam: PRESENT: appropriate affect, normal mood. ABSENT: homicidal ideation, suicidal ideation Skin exam: PRESENT: dry, intact, warm. ABSENT: cyanosis, rash Results Laboratory Results: 10/15/16 05:15 10/15/16 05:15 10/14/16 10/14/16 10/15/16 09:30 09:30 05:15 WBC 11.6 H RBC 4.02 Hgb 10.8 L Hct 35.2 L MCV 87 MCH 26.9 L MCHC 30.8 L RDW 14.9 H Plt Count 221 Seg Neutrophils % 81.8 H Lymphocytes % 11.6 L Monocytes % 6.5 Eosinophils % 0.0 Basophils % 0.1 Absolute Neutrophils 9.5 H Absolute Lymphocytes 1.3 Absolute Monocytes 0.8 Absolute Eosinophils 0.0 Absolute Basophils 0.0 Sodium 140.7 139.1 Potassium 4.2 4.9 Chloride 96 L 99 Carbon Dioxide 38 H 36 H Anion Gap 7 4 L BUN 26 H 31 H Creatinine 0.59 0.55 Est GFR ( Amer) > 60 > 60 Est GFR (Non-Af Amer) > 60 > 60 Glucose 96 132 H Calcium 8.5 8.1 L Magnesium 2.4 H 2.3 10/15/16 05:15 WBC 11.0 H RBC 3.76 Hgb 10.3 L Hct 33.8 L MCV 90 MCH 27.4 MCHC 30.5 L RDW 15.1 H Plt Count 211 Seg Neutrophils % 91.1 H Lymphocytes % 6.5 L Monocytes % 2.2 L Eosinophils % 0.0 Basophils % 0.2 Absolute Neutrophils 10.0 H Absolute Lymphocytes 0.7 Absolute Monocytes 0.2 Absolute Eosinophils 0.0 Absolute Basophils 0.0 Sodium Potassium Chloride Carbon Dioxide Anion Gap BUN Creatinine Est GFR ( Amer) Est GFR (Non-Af Amer) Glucose Calcium Magnesium 10/11/16 10/13/16 05:30 04:26 NT-Pro-B Natriuret Pep 1750 H 714 Impressions: Chest X-Ray 10/04/16 11:48 IMPRESSION: EXTENSIVE CHRONIC PULMONARY FIBROSIS. PROBABLE SUPERIMPOSED INFILTRATE SECONDARY TO PNEUMONIA IN THE RIGHT UPPER LOBE. POSSIBLE SIMILAR FINDING IN THE LEFT UPPER LOBE. Interventional Vascular Procedure 10/05/16 00:00 IMPRESSION: Placement of left basilic vein PICC. PICC Line Insertion 10/05/16 00:00 IMPRESSION: Placement of left basilic vein PICC. Chest CT 10/11/16 00:00 IMPRESSION: Progression of diffuse lung disease since prior CT chest. There is now ground-glass opacity in the right upper lobe and superior segment right lower lobe, pneumonia versus edema versus pneumonitis. No pleural effusions. Assessment & Plan - Diagnosis (1) Acute on chronic respiratory failure with hypoxia and hypercapnia Is this a current diagnosis for this admission?: YesPlan: Dr. Singh is following and we certainly appreciate his input. Plan of care per pulmonology. At this point he is recommending she stay on BiPAP and efforts are being made to get her a trilogy machine. We will see how she does and responds over the next couple of days and make further decisions. Hospice has been discussed with the family and they are aware that she is getting to that point. We are hoping to get her well enough to go home for a while before that becomes necessary. The patient herself is not quite there yet. (2) Idiopathic pulmonary fibrosis Is this a current diagnosis for this admission?: YesPlan: Worsening per radiology report from most recent CT scan performed during this hospitalization. (3) Pneumonia Qualifiers: Pneumonia type: due to unspecified organism Laterality: right Lung location: upper lobe of lung Qualified Code(s): J18.1 - Lobar pneumonia, unspecified organism Is this a current diagnosis for this admission?: YesPlan: She has Pseudomonas growing in her sputum. Continue imipenem for now. She also is on tobramycin nebulizer treatments. She is on day #5 imipenem. She received several days of IV Levaquin prior to this. She has received 5 days of tobramycin nebulizer treatments as well. (4) Hyperkalemia Plan: Her level has normalized. She will have a chemistry panel drawn in the morning. - Time Time Spent with patient: 25-34 minutes Disposition: Inpatient hospitalization remains necessary. The patient's prognosis is quite guarded. I am not quite sure how we are going to get her out of the hospital as she remains on BiPAP support [id number]. Currently she is receiving parenteral therapies. Timing of disposition will be determined by her clinical course.
[2016-10-16] MEDS: IMIPENEM/CILASTATIN SODIUM 500 MG in NORMAL SALINE 100 ML IV SCH ×4 (06:10→23:40)
[2016-10-16] MEDS: IPRATROPIUM/ALBUTEROL 0.5-2.5 MG/3 ML AMPUL NEB SCH ×3 (07:50→19:55)
[2016-10-16] MEDS: TOBRAMYCIN SULFATE NEB 40 MG/ML 30 ML NEB SCH ×2 (07:50→19:54)
[2016-10-16] MEDS ORDERED: ALBUTEROL SULFATE 0.083% NEB 2.5 MG/3 ML AMPUL NEB PRN (08:33)
--- NOTE | 2016-10-16 09:19 | PROGRESS NOTE E ---
Progress Note NAME: KEDAR CORDERO : 1945 AGE: 71Y DATE: 10/14/2016 ROOM: 301 SUBJECTIVE: The patient is currently out of bed to the bedside chair. She says she feels better today than yesterday. She does have family present at bedside active in the patient's care. The patient denies any sputum production today but does admit to strong cough as well as chills but denies fever sensations. Patient has had no episodes of nausea, vomiting, diarrhea, dizziness, chest pain. The patient has been afebrile. Blood pressure has been in a good range. The patient is currently tolerating nasal cannula at half flow nasal cannula not currently on the BiPAP and patient does not voice any other concerns at this time. REVIEW OF SYSTEMS: The rest of review of systems is negative. MEDICATIONS: Medications have been reviewed. OBJECTIVE: GENERAL: The patient is a 71-year-old -[place]oc[place] female who is awake, alert, oriented to person, place, time and situation. She is verbal, conversational, and does not appear to be in any acute distress. VITAL SIGNS: As follows: Temperature 97.8, pulse 71, respirations 20, blood pressure 117/74, oxygen saturation is 97% on 7 L nasal cannula. SKIN: Warm and dry. No rash. Not diaphoretic. HEENT: Pupils are equal, round and reactive to light and accommodation. Conjunctivae are pink. There is no JVD. CARDIOVASCULAR SYSTEM: Heart is regular. There is no murmur or rub. CHEST: The patient does have coarse lung sounds. Symmetrical. ABDOMEN: Soft, nontender, nondistended. BACK: No CVA tenderness or sacral edema. EXTREMITIES: No clubbing, cyanosis, edema. PSYCHIATRIC: Appropriate affect, pleasant mood. DIAGNOSTICS: Lab values are as follows: Hematology on 10/15/2016: WBC is 1.0, hemoglobin , hematocrit 33.8, platelet count is 211,000. Chemistry obtained on 10/15/2016: Sodium 139, potassium 4.9, chloride 99, carbon dioxide 36, BUN 31, creatinine 0.55, glucose 132, calcium is 8.1, magnesium is 2.3. IMPRESSION AND PLAN: 1. PSEUDOMONAS PNEUMONIA. Will continue IV antibiotic coverage as well as tobramycin nebs. Do appreciate Pulmonology's input with this. 2. IDIOPATHIC PULMONARY FIBROSIS. THIS DOES APPEAR TO BE WORSENING ON CT SCAN. The patient has elected to be a DNR. 3. ACUTE ON CHRONIC HYPOXEMIC HYPOCAPNEIC RESPIRATORY FAILURE. OVERALL THIS IS MUCH BETTER. The patient is currently on nasal cannula, is eating breakfast, tolerating being off the BiPAP. It appears that pulmonology is working to get the patient a Trilogy machine. In the meantime, the patient can to go rehab since there is a bed available. 4. HYPERKALEMIA. THIS IS NORMALIZED. 5. HYPERTENSION. BLOOD PRESSURES HAVE BEEN IN A GOOD RANGE. Will continue current medications. DISPOSITION: The patient is a DO NOT RESUSCITATE/DO NOT INTUBATE. Pending patient's symptomatology and diagnostic findings, will reevaluate in the a.m. Time spent on this followup including assessment, plan, physical examination, patient education and family meeting is 25 minutes. DICTATING PHYSICIAN: HARVEY WELLS NP [id number] PHY#: [id number] ID: [id number] JOB#: [id number] ACCT: [id number] cc: > MTDD
[2016-10-16] MEDS ORDERED: GUAIFENESIN 600 MG TABLET.SA PO SCH (10:00)
[2016-10-16] MEDS: PREDNISONE 20 MG TABLET PO SCH ×2 (10:43→17:43)
[2016-10-16] MEDS: ENOXAPARIN SODIUM INJ 40 MG/0.4 ML DISP.SYRIN SUBCUT SCH (10:44)
[2016-10-16] MEDS: LACTOBACILLUS ACIDOPHILUS 250 MG TAB PO SCH ×2 (10:45→17:41)
[2016-10-16] MEDS: ASPIRIN 81 MG TABLET, ENT COATED PO SCH (10:45)
[2016-10-16] MEDS: FAMOTIDINE 20 MG TABLET PO SCH ×2 (10:45→22:05)
[2016-10-16] MEDS: BUDESONIDE/FORMOTEROL 160-4.5 MCG 60 PUFF/6 GM MDI IH SCH ×2 (10:45→22:04)
[2016-10-16] MEDS: SODIUM CHLORIDE NASAL SPRAY 44 ML NASL SCH ×4 (10:46→22:05)
[2016-10-16] MEDS: NORMAL SALINE 10 ML SDV (SCHEDULED) IV SCH ×2 (10:46→22:05)
[2016-10-17] MEDS: IMIPENEM/CILASTATIN SODIUM 500 MG in NORMAL SALINE 100 ML IV SCH ×3 (05:46→17:38)
[2016-10-17] MEDS: TOBRAMYCIN SULFATE NEB 40 MG/ML 30 ML NEB SCH ×2 (07:50→19:29)
[2016-10-17] MEDS: IPRATROPIUM/ALBUTEROL 0.5-2.5 MG/3 ML AMPUL NEB SCH ×3 (07:50→19:29)
[2016-10-17] MEDS: SODIUM CHLORIDE NASAL SPRAY 44 ML NASL SCH ×3 (08:31→15:02)
[2016-10-17] MEDS: ENOXAPARIN SODIUM INJ 40 MG/0.4 ML DISP.SYRIN SUBCUT SCH (08:33)
[2016-10-17] MEDS: ASPIRIN 81 MG TABLET, ENT COATED PO SCH (09:55)
[2016-10-17] MEDS: LACTOBACILLUS ACIDOPHILUS 250 MG TAB PO SCH ×2 (09:55→17:38)
[2016-10-17] MEDS: FAMOTIDINE 20 MG TABLET PO SCH (09:55)
[2016-10-17] MEDS: PREDNISONE 20 MG TABLET PO SCH ×2 (09:55→17:39)
[2016-10-17] MEDS: BUDESONIDE/FORMOTEROL 160-4.5 MCG 60 PUFF/6 GM MDI IH SCH (09:56)
[2016-10-17] MEDS: NORMAL SALINE 10 ML SDV (SCHEDULED) IV SCH (09:57)
--- NOTE | 2016-10-17 12:08 | TRANSFER SUMMARY E ---
Transfer Summary NAME: KEDAR CORDERO : 1945 AGE: 71Y ADMITTED: 10/04/2016 TRANSFERRED: 10/17/2016 CODE STATUS: FULL CODE PRIMARY CARE PROVIDER: Lj Maldonado M.D. DISCHARGE DIAGNOSES: Includes: 1. Pseudomonal pneumonia. 2. End-stage idiopathic pulmonary fibrosis. 3. Acute on chronic hypoxemic and hypercapnic respiratory failure. 4. Hyperkalemia, which normalized. 5. Hypertension. DISCHARGE MEDICATIONS: Include: 1. Tylenol 975 mg p.o. q. 4 hours p.r.n. 2. Aspirin 81 mg p.o. daily. 3. Symbicort HFA 2 puffs inhalation q. 12 hours. 4. Duonebs 1 neb q. 6 hours while awake. 5. Prednisone 20 mg p.o. b.i.d. This will need to be tapered as per the patient's symptoms. 6. Albuterol 2.5 mg nebs 1 neb q. 4 hours p.r.n. 7. Levaquin 750 mg p.o. daily x8 more tablets to complete a 21 day course. 8. Bi-Pap 30% FiO2 10/. DIET: As tolerated. ACTIVITY: As per rehab standards. HISTORY OF PRESENT ILLNESS: The patient is a 71-year-old -[place] female with a past medical history of pulmonary fibrosis with O2 dependency. The patient presented to the emergency department with a chief complaint of shortness of breath. Apparently, the patient had had several day history of worsening dyspnea, increased cough, and change in color and character of phlegm with subjective fevers, chills, as well as lethargy. The patient was found to be hypercapnic with evidence of right upper lobe pneumonia. The patient was placed on BiPAP to maintain her oxygen saturation. The patient did have decreased work of breathing as well and therefore was referred to the hospitalist for admission and management. At the time of admission, the patient denied any chest pain. No palpitation, nausea, vomiting, diarrhea, no recent travel, and the patient did report a sick contact approximately 2 weeks prior to presentation. HOSPITAL COURSE: The patient was admitted to [facility]. The patient was placed on scheduled nebs, steroids, antibiotic coverage of broad spectrum and BiPAP. The patient, ever so slowly, did improve in symptoms; however, at this time, it does appear she is BiPAP dependent. The patient has been seen by Dr. Singh with Pulmonology and the patient was started on tobramycin nebs given that her sputum culture is positive for Pseudomonas. The patient pretty much wears the BiPAP throughout the day, but does transition to nasal cannula at about 6 L for meals. The patient's current BiPAP settings are 30% FiO2 with 10/6. The patient is making scant amount of sputum, but overall symptoms are improved in comparison to previous. The patient was seen and evaluated by Palliative Care. The patient has deferred hospice at this time and has elected to conservatively manage and be of DNR status, but the patient did not want to convert to a hospice model. The patient has been seen by Pulmonology, and the patient will follow up with Dr. Singh for possible trilogy. At this time, the patient's antibiotics have been converted to p.o. and the patient has been unable to tolerate less than 40 mg daily of a steroid. The patient has elected to go to rehab. I have discussed the case with the patient's brother who is her power of defense attorney who is in agreeance to this plan. DIAGNOSTICS: Lab values are as follows: Hematology obtained on 10/15/2016: WBC is 11.0, hemoglobin is 10.3, hematocrit is 33.8, platelet count is 211,000. Coagulation obtained on 10/05/2016: PT is 14.3, INR is 1.04. Chemistry obtained on 10/15/2016: Sodium is 139, potassium 4.3, chloride is 99, carbon dioxide 36, BUN 31, creatinine is 0.55, glucose 132, calcium is 8.1, magnesium is 2.3. BNP is 714. Bilirubin is 0.4. Microbiology: Blood cultures obtained on 10/04/2016 revealed no growth. Sputum culture obtained on 10/04/[address] obtained on 10/11/2016 reveals progressive but diffuse lung disease in comparison to previous imaging. PHYSICAL EXAMINATION: GENERAL: On examination, the patient is a well-developed, frail, chronically ill-appearing 71-year-old -[place] female who is awake, alert, and oriented to person, place, time, and situation. She is verbal, conversational, does appear fatigued, does not appear to be in any acute distress. VITAL SIGNS: Temperature is 97.7, pulse 67, respirations 24, blood pressure is 100/64, oxygen saturation is 100% on 25% FiO2. SKIN: Warm and dry. No rash. She is not diaphoretic. HEENT: Pupils are equal, round, and reactive to light and accommodation. Conjunctivae is pale. BiPAP in place. CARDIOVASCULAR SYSTEM: Heart is regular. There is no murmur or rub. CHEST: Very diminished, symmetrical, unlabored. ABDOMEN: Soft, nontender, nondistended. BACK: No CVA tenderness or sacral edema. EXTREMITIES: No clubbing, cyanosis, edema. PSYCHIATRIC: Appropriate affect, pleasant mood. DISCHARGE PLANNING: The patient is advised to follow up with Dr. Singh within 2 weeks for hospital followup. Time spent on this discharge including assessment, plan, physical examination, patient education and family meeting, specialty collaboration is 35 minutes. DICTATING PHYSICIAN: HARVEY WELLS NP [id number] PHY#: [id number] ID: [id number] JOB#: [id number] ACCT: [id number] cc:HARVEY WELLS NP > MTDD
--- NOTE | 2016-10-17 12:19 | PDOC PROGRESS REPORT ---
Subjective Progress Note for:: 10/17/16 Subjective:: Patient without complaints states that she feels better Physical Exam Vital Signs: Temp Pulse Resp BP Pulse Ox 97.7 F 67 24 H 100/64 100 10/17/16 08:00 10/17/16 08:00 10/17/16 08:00 10/17/16 08:00 10/17/16 08:00 Pulse Oximeter Continuous Start: 10/04/16 14: 57 Freq: RTQ4 Status: Active Document 10/17/16 04:40 [facility] (Rec: 10/17/16 05:09 [facility] [email or web address]) Pulse Oximetry Assessment Oxygen Saturation (92-100) 100 Oxygen Delivery Method Bi-pap Fraction of Inspired Oxygen (FIO2) 30 Equipment Usage Equipment in Use Continuous SpO2 Machine # 10 Intake & Output 10/16/16 10/17/16 10/18/16 06:59 06:59 06:59 Intake Total 1429 2251 Output Total 300 1 Balance 1129 2250 Weight 75.1 kg General appearance: PRESENT: no acute distress, cooperative, disheveled, well- developed Head exam: PRESENT: atraumatic, normocephalic Eye exam: PRESENT: conjunctiva pale, EOMI Mouth exam: PRESENT: dry mucosa, neck supple, tongue midline Neck exam: ABSENT: carotid bruit, JVD, lymphadenopathy, thyromegaly Respiratory exam: PRESENT: decreased breath sounds, prolonged expiratory phas, rhonchi, unlabored Cardiovascular exam: PRESENT: RRR, +S1, +S2 Pulses: PRESENT: normal radial pulses GI/Abdominal exam: PRESENT: normal bowel sounds, soft. ABSENT: distended, guarding, mass, organolmegaly, rebound, tenderness Rectal exam: PRESENT: deferred Musculoskeletal exam: PRESENT: normal inspection Neurological exam: PRESENT: alert, awake Psychiatric exam: PRESENT: normal mood Skin exam: PRESENT: dry, warm Results Laboratory Results: 10/15/16 05:15 10/15/16 05:15 10/11/16 10/13/16 05:30 04:26 NT-Pro-B Natriuret Pep 1750 H 714 Impressions: Chest X-Ray 10/04/16 11:48 IMPRESSION: EXTENSIVE CHRONIC PULMONARY FIBROSIS. PROBABLE SUPERIMPOSED INFILTRATE SECONDARY TO PNEUMONIA IN THE RIGHT UPPER LOBE. POSSIBLE SIMILAR FINDING IN THE LEFT UPPER LOBE. Interventional Vascular Procedure 10/05/16 00:00 IMPRESSION: Placement of left basilic vein PICC. PICC Line Insertion 10/05/16 00:00 IMPRESSION: Placement of left basilic vein PICC. Chest CT 10/11/16 00:00 IMPRESSION: Progression of diffuse lung disease since prior CT chest. There is now ground-glass opacity in the right upper lobe and superior segment right lower lobe, pneumonia versus edema versus pneumonitis. No pleural effusions. Assessment & Plan - Diagnosis (1) Acute on chronic respiratory failure with hypoxia and hypercapnia Is this a current diagnosis for this admission?: YesPlan: Overall unchanged The above patient has failed BiPAP. This patient would benefit from noninvasive mechanical ventilation via the trilogy AVAPS/AE and faster responding AVAPS rates. The trilogy is able to provide a target tidal volume and also adjusting the EPAP pressures to maintain a patent airway as well as an oral backup rate this machine will help improve PaCO2 levels. The severity of the patient's condition will lead to future hospitalizations and readmissions as well as life-threatening situations without the use of this device trilogy home vent needed for hypercapnic respiratory failure. Family medical to follow for trilogy set up. (2) Idiopathic pulmonary fibrosis Is this a current diagnosis for this admission?: YesPlan: End-stage disease:Discussed with family as well as PCP per family patient Is now a DNR. Strong consideration should be given for hospice and palliative care - Time Time Spent with patient: 25-34 minutes
[2016-10-17 21:47] VITALS: BP 112/67
== END 2016-10-17 22:09 | DRG 190 ==
LOC: ER 11:42 → EH 14:01 → UNDOADMIN 14:01 → EH 14:56 → 3N 16:30
PROVIDERS: ADMIT Internal Medicine; ATTEND Internal Medicine
PROC: 5A09557 Assistance with Respiratory Ventilation, Greater than 96 Consecutive Hours, Continuous Positive Airway Pressure (ICD-10-PCS; principal; 2016-10-04)
PROC: 02HV33Z Insertion of Infusion Device into Superior Vena Cava, Percutaneous Approach (ICD-10-PCS; 2016-10-05)
PROC: B548ZZA Ultrasonography of Superior Vena Cava, Guidance (ICD-10-PCS; 2016-10-05)
PROC: B548ZZA Ultrasonography of Superior Vena Cava, Guidance (ICD-10-PCS; 2016-10-05)
DX: J44.0 Chronic obstructive pulmonary disease with (acute) lower respiratory infection (principal); J15.1 Pneumonia due to Pseudomonas; J96.22 Acute and chronic respiratory failure with hypercapnia; J96.21 Acute and chronic respiratory failure with hypoxia; J84.10 Pulmonary fibrosis, unspecified; E87.5 Hyperkalemia; I10 Essential (primary) hypertension; Z66 Do not resuscitate; M19.90 Unspecified osteoarthritis, unspecified site; Z79.82 Long term (current) use of aspirin; Z79.899 Other long term (current) drug therapy; Z99.81 Dependence on supplemental oxygen; Z88.0 Allergy status to penicillin; Z91.013 Allergy to seafood; F17.210 Nicotine dependence, cigarettes, uncomplicated
CPT/HCPCS: 36415; 36569; 36600; 71010; 71250; 76937; 80048; 80053; 80202; 81001; 82550; 82553; 82565; 82803; 83735; 83880; 84484; 85025; 85027; 85610; 87040; 87070; 87077; 87186; 87205; 93005; 93010; 94640; 94660; 94667; 94762; 94799; 99291; G8978-GP; G8979-GP; J0743; J1642; J1650; J1940; J1956; J2920; J3370; J3490; J7060; J7512; J7620; J7685; S0028

== ENCOUNTER 2016-10-20 20:18 | Emergency (ER) | payer MEDICARE, OTHER, BC ==
[2016-10-20] MEDS ORDERED: IPRATROPIUM/ALBUTEROL 0.5-2.5 MG/3 ML AMPUL NEB ONE (20:50)
--- NOTE | 2016-10-20 20:50 | ER Document Report ---
ED Respiratory Problem - General Chief Complaint: Shortness Of Breath Stated Complaint: BREATHING DIFFICULTY Time Seen by Provider: 10/20/16 20:30 Notes: The patient is a 71-year-old female, past medical history COPD, end-stage pulmonary fibrosis, hypertension, pseudomonous pneumonia, presents from [place] [facility] with increased shortness of breath and generalized weakness. She was discharged from [facility] 3 days ago after admission for respiratory failure on BiPAP and pneumonia. She was using her BiPAP machine at [facility] the past 3 days, except when eating, but she does not think that it was working. With increasing shortness of breath, she called EMS. EMS arrived and her oxygen was in the low 80s on her BiPAP machine. They placed her on CPAP with improvement of her oxygenation to 97%. The patient states that her breathing greatly improved. In addition, she is having bilateral lower extremity edema. Denies chest pain, fevers, increased coughing, abdominal pain , nausea, back pain or rash. Patient says that her Lasix dose was stopped while she was admitted. Pt is DNI, but she would want CPR if needed. TRAVEL OUTSIDE OF THE [place] IN LAST 30 DAYS: No - Related Data Allergies/Adverse Reactions: Penicillins Allergy (Verified 08/30/16 12:17) Swelling Shellfish * [Shellfish] Allergy (Verified 08/30/16 12:17) Passed out, Unsure Past Medical History - General Information source: Patient, Relative - Brother - Social History Smoking Status: Current Every Day Smoker Family History: Reviewed & Not Pertinent - to current illness - Past Medical History Cardiac Medical History: Reports: Hx Hypertension Denies: Hx Atrial Fibrillation, Hx Congestive Heart Failure, Hx Coronary Artery Disease, Hx Heart Attack, Hx Hypercholesterolemia, Hx Peripheral Vascular Disease, Hx Pulmonary Embolism, Hx Heart Murmur Pulmonary Medical History: Reports: Hx Bronchitis, Hx COPD, Hx Pneumonia Denies: Hx Asthma, Hx Respiratory Failure, Hx Sleep Apnea, Hx Tuberculosis Renal/ Medical History: Denies: Hx Ovarian Cysts, Hx Pelvic Inflammatory Disease Malignancy Medical History: Denies: Hx Breast Cancer, Hx Cervical Cancer, Hx Lung Cancer, Hx Ovarian Cancer Musculoskeltal Medical History: Reports Hx Arthritis, Denies Hx Fibromyalgia, Denies Hx Muscular Dystrophy Psychiatric Medical History: Denies: Hx Depression Traumatic Medical History: Denies: Hx Fractures Past Surgical History: Reports: Hx Tonsillectomy. Denies: Hx Appendectomy, Hx Bowel Surgery, Hx Section, Hx Cholecystectomy, Hx Coronary Artery Bypass Graft, Hx Gastric Bypass Surgery, Hx Herniorrhaphy, Hx Hysterectomy, Hx Mastectomy, Hx Tubal Ligation - Immunizations Hx Diphtheria, Pertussis, Tetanus Vaccination: No Hx Pneumococcal Vaccination: 07/23/08 Review of Systems - Review of Systems Notes: REVIEW OF SYSTEMS: CONSTITUTIONAL: -fevers, -chills EENT: -eye pain, -difficulty swallowing, -nasal congestion CARDIOVASCULAR:-chest pain, -syncope. RESPIRATORY: -cough, +SOB GASTROINTESTINAL: -abdominal pain, -nausea, -vomiting, -diarrhea GENITOURINARY: -dysuria, -hematuria MUSCULOSKELETAL: -back pain, -neck pain SKIN: -rash or skin lesions. HEMATOLOGIC: -easy bruising or bleeding. LYMPHATIC: -swollen, enlarged glands. NEUROLOGICAL: -altered mental status or loss of consciousness, -headache, - neurologic symptoms PSYCHIATRIC: -anxiety, -depression. ALL OTHER SYSTEMS REVIEWED AND NEGATIVE. Physical Exam - Vital signs Vitals: Resp 26 H 10/20/16 20:25 - Notes Notes: PHYSICAL EXAMINATION: GENERAL: Mild respiratory distress. HEAD: Atraumatic, normocephalic. EYES: Pupils equal round and reactive to light, extraocular movements intact, sclera anicteric, conjunctiva are normal. NECK: Normal range of motion, supple without lymphadenopathy LUNGS: Able to speak in full sentences. Tachypnea. Mild respiratory distress. Rales in right lower lobe. HEART: Regular rate and rhythm without murmurs ABDOMEN: Soft, nontender, normoactive bowel sounds. No guarding, no rebound. No masses appreciated. EXTREMITIES: 2+ B/L pitting edema, normal range of motion, no pitting or edema. No cyanosis. NEUROLOGICAL: Cranial nerves grossly intact. Normal speech, normal gait. Normal sensory and motor exams. PSYCH: Normal mood, normal affect. SKIN: Warm, Dry, normal turgor, no rashes or lesions noted. Course - Re-evaluation Re-evalutation: Pt appears well on BiPAP. She says that she is now chronically on BiPAP due to her end-stage pulmonary fibrosis and she is not having any increased SOB than when she left [facility] 3 days ago. Patient's labs are unremarkable and her chest x- ray is greatly improved since her admission 2 weeks ago. She is finishing up her Levaquin. Spoke to patient and brother, who is the POA and very knowledgeable about his sister's condition. Offered observation so that there would be time to make sure the BiPAP machine at [facility] is working appropriately. However, the brother is concerned that since this is an observation under Medicare, there will be a very large bill. There is no criteria for inpatient admission at this time. This was confirmed with registration. Will watch patient overnight on BiPAP machine with her home settings and have case management speak to patient in the morning to ensure that she has the proper equipment and [place] [facility] before she returns. Patient and brother agree with this plan. Once again, patient confirmed that she is DNI. - Vital Signs Vital signs: Temp Pulse Resp BP Pulse Ox 99.2 F 26 H 113/68 97 10/20/16 21:01 10/20/16 22:01 10/20/16 22:01 10/20/16 22:01 - Laboratory Result Diagrams: 10/20/16 20:50 10/20/16 20:50 Laboratory results interpreted by me: 10/20/16 10/20/16 10/20/16 20:50 20:50 22:34 WBC 12.8 H Hgb 11.3 L MCHC 30.6 L RDW 15.3 H Seg Neutrophils % 81.8 H Lymphocytes % 8.8 L Absolute Neutrophils 10.5 H VBG pH 7.43 H VBG HCO3 35.1 H Carbon Dioxide 35 H BUN 27 H Glucose 114 H Calcium 8.3 L AST 13 L Creatine Kinase 29 L Total Protein 5.6 L Albumin 3.0 L - Diagnostic Test Radiology reviewed: Image reviewed, Reports reviewed Radiology results interpreted by me: CXR: NAD - EKG Interpretation by Me EKG shows normal: Sinus rhythm, [place], Intervals, QRS Complexes, ST-T Waves Rate: Normal Discharge - Discharge Clinical Impression: Dyspnea Qualifiers: Dyspnea type: unspecified Qualified Code(s): R06.00 - Dyspnea, unspecified Condition: Stable Additional Instructions: SHORTNESS OF BREATH OR DYSPNEA: You were evaluated for shortness of breath, or dyspnea. Dyspnea has many causes, and some are more serious than others. Sometimes it's impossible to diagnose the cause of dyspnea with the tests that are available on an emergency basis. Based on our evaluation today, you do not need hospitalization now. We found no evidence of pneumonia, collapsed lung, blood clots in the lung, tumors , or heart failure. Causes of non-specific dyspnea can include asthma or bronchospasm, hyperventilation, emotional distress, heart disease, emphysema, fibrosis of the lung, and stiffness of the chest wall. In healthy individuals with a single episode, it's sometimes reasonable to do nothing but wait to see if the problem occurs again. Additional tests used to evaluate dyspnea can include cardiac stress testing, echocardiography, pulmonary function testing, CAT scan of the chest, bronchoscopy or pulmonary biopsy. Return if shortness of breath persists or worsens, or if you develop chest pain, fever, cough, confusion, or fainting. NORMAL EXAM AND WORKUP: At this time, your examination and workup show no significant abnormality. No significant abnormal physical findings were noted. All laboratory, EKG, and imaging (x-ray, CT scans, ultrasound) studies that were ordered show no significant abnormality. Although your examination and all studies that were ordered showed no significant abnormal finding, there are no examinations and no studies that are 100% accurate. There is always the possibility that some abnormality could exist and not be detected with physical examination or within the limits and capabilities of laboratory and other studies. You should return or follow up as you were instructed on your visit today for further evaluation if your symptoms do not resolve. FOLLOW-UP CARE: If you have been referred to a physician for follow-up care, call the physician s office for an appointment as you were instructed or within the next two days. If you experience worsening or a significant change in your symptoms, notify the physician immediately or return to the Emergency Department at any time for re-evaluation. Referrals: ROXANN REYES MD [ACTIVE STAFF] - Follow up as needed
[2016-10-20 21:05] LABS: ABSOLUTE LYMPHOCYTES (AUTO) 1.1 10^3/uL (0.5-4.7); ABSOLUTE MONOCYTES (AUTO) 1.2 10^3/uL (0.1-1.4); ABSOLUTE NEUT (AUTO) 10.5 10^3/uL (1.7-8.2); EOSINOPHILS % (AUTO) 0.3 % (0-6); HEMATOCRIT 36.8 % (36.0-47.0); HEMOGLOBIN 11.3 g/dL (12.0-15.5); HGB HCT DIFFERENCE -2.9; LYMPHOCYTES % (AUTO) 8.8 % (13-45); MEAN CORPUSCULAR HEMOGLOBIN 27.4 pg (27.0-33.4); MEAN CORPUSCULAR HGB CONC 30.6 g/dL (32.0-36.0); MEAN CORPUSCULAR VOLUME 89 fl (80-97); MONOCYTES % (AUTO) 9.1 % (3-13); RED BLOOD COUNT 4.12 10^6/uL (3.72-5.28); RED CELL DISTRIBUTION WIDTH 15.3 % (11.5-14.0); SEGMENTED NEUTROPHILS % (AUTO) 81.8 % (42-78); WHITE BLOOD COUNT 12.8 10^3/uL (4.0-10.5)
--- NOTE | 2016-10-20 21:05 | RADIOLOGY REPORT (SQ) ---
EXAM DESCRIPTION: CHEST SINGLE VIEW COMPLETED DATE/TIME: 10/20/2016 8:53 pm REASON FOR STUDY: sob COMPARISON: CT chest dated 10/11/2016. Chest x-ray dated 10/05/2016. EXAM PARAMETERS: NUMBER OF VIEWS: One view. TECHNIQUE: Single frontal radiographic view of the chest acquired. RADIATION DOSE: NA LIMITATIONS: None. FINDINGS: LUNGS AND PLEURA: Chronic pulmonary fibrosis. No acute infiltrates, masses or pneumothora x. No pleural effusion. MEDIASTINUM AND HILAR STRUCTURES: No masses. Contour normal. HEART AND VASCULAR STRUCTURES: Heart normal in size. Normal vasculature. BONES: No acute findings. HARDWARE: None in the chest. OTHER: No other significant finding. IMPRESSION: CHRONIC PULMONARY FIBROSIS. NO ACUTE RADIOGRAPHIC FINDING IN THE CHEST. TECHNICAL DOCUMENTATION: JOB ID: [id number]
[2016-10-20 21:17] LABS: PROTHROMBIN TIME 13.4 SEC (11.4-15.4)
[2016-10-20 21:28] LABS: ALANINE AMINOTRANSFERASE 31 U/L (9-52); ALKALINE PHOSPHATASE 54 U/L (38-126); ANION GAP 5 (5-19); ASPARTATE AMINO TRANSFERASE 13 U/L (14-36); BILIRUBIN,DIRECT 0.2 mg/dL (0.0-0.4); BILIRUBIN,TOTAL 0.3 mg/dL (0.2-1.3); BLOOD UREA NITROGEN 27 mg/dL (7-20); CALCIUM 8.3 mg/dL (8.4-10.2); CARBON DIOXIDE 35 mmol/L (22-30); CHLORIDE 100 mmol/L (98-107); CREATINE KINASE 29 U/L (30-135); CREATININE RESULT 0.84 mg/dL (0.52-1.25); GLUCOSE 114 mg/dL (75-110); POTASSIUM 4.2 mmol/L (3.6-5.0); SODIUM 140.3 mmol/L (137-145); TOTAL PROTEIN 5.6 g/dL (6.3-8.2)
--- NOTE | 2016-10-20 21:40 | EKG REPORT ---
SEVERITY:- ABNORMAL ECG - SINUS RHYTHM PROBABLE LEFT ATRIAL ABNORMALITY PROBABLE LEFT VENTRICULAR HYPERTROPHY : Confirmed by: Ashley Saldana 20-Oct-2016 21:39:15
[2016-10-20 21:41] LABS: CREATINE KINASE MB 0.55 ng/mL (<4.55)
[2016-10-20 21:44] LABS: TROPONIN I < 0.012 ng/mL
[2016-10-20 22:47] LABS: VENOUS BLOOD BASE EXCESS 9.2 mmol/L; VENOUS BLOOD HCO3 35.1 mmol/L (20-32); VENOUS BLOOD PCO2 54.8 mmHg (35-63); VENOUS BLOOD PH 7.43 (7.30-7.42)
[2016-10-20 23:19] LABS: APPEARANCE,URINE CLEAR; BILIRUBIN,URINE NEGATIVE (NEGATIVE); GLUCOSE, URINE NEGATIVE (NEGATIVE); KETONES,URINE NEGATIVE (NEGATIVE); LEUKOCYTE ESTERASE,URINE NEGATIVE (NEGATIVE); NITRITE,URINE NEGATIVE (NEGATIVE); PROTEIN,URINE NEGATIVE (NEGATIVE); URINE SPECIFIC GRAVITY 1.031; UROBILINOGEN,URINE NEGATIVE mg/dL (<2.0)
[2016-10-21] MEDS ORDERED: ACETAMINOPHEN 325 MG TABLET PO PRN (10:56)
[2016-10-21] MEDS ORDERED: IPRATROPIUM/ALBUTEROL 0.5-2.5 MG/3 ML AMPUL NEB SCH (14:00)
[2016-10-21 19:01] VITALS: BP 107/70
[2016-10-21] MEDS ORDERED: BUDESONIDE/FORMOTEROL 160-4.5 MCG 60 PUFF/6 GM MDI IH SCH (22:00)
[2016-10-22] MEDS ORDERED: ASPIRIN 81 MG TABLET, ENT COATED PO SCH (10:00)
== END 2016-10-21 21:05 ==
LOC: ER 20:18
DX: J84.10 Pulmonary fibrosis, unspecified (principal); J96.90 Respiratory failure, unspecified, unspecified whether with hypoxia or hypercapnia; Z99.11 Dependence on respirator [ventilator] status; J44.0 Chronic obstructive pulmonary disease with (acute) lower respiratory infection; J15.1 Pneumonia due to Pseudomonas; I10 Essential (primary) hypertension; R53.1 Weakness; R60.0 Localized edema; F17.200 Nicotine dependence, unspecified, uncomplicated; Z88.0 Allergy status to penicillin; Z91.013 Allergy to seafood
CPT/HCPCS: 93005; 94640; 99285; 51701; 36415; 87040; 87086; 82553; 82550; 85025; 85610; 80053; 81001; 84484; 82803; 83605; 83880; 71010; 93010; 94660 ×2; A9270; J7620